=== PATIENT | male | born 1950 | race Caucasian/White ===

== ENCOUNTER 2016-06-29 11:31 | Inpatient (IN) | payer MEDICARE, MEDICAID ==
[~2016-06-29] VITALS: Ht 193 cm; Wt 120.5 kg
[~2016-06-29 11:31] MED LIST: CLIN-78 PO; FURO40TA4 PO; LISI-567 PO; OXYC-474 PO; OXYC30TA77 PO; POTA20TA16 PO; WARF10TA5 PO; WARF5TAB7 PO
[2016-06-29 11:34] VITALS: BP 157/91; PULSE 90; RESP 20; O2SAT 99
--- NOTE | 2016-06-29 12:00 | ED.REPORT ---
HPI-Extremity Problem Lower Date of Service Jun 29, 2016 ED Provider: Chino Rivas PA-C Kameron is a 65-year-old male with type II diabetes who was referred to the emergency department by Dr. Frances to address osteomyelitis in his right heel. Patient states that he was asked to present to our department yesterday but was unable to due to obligations at home. Further states that Dr. Frances wants to admit him for surgical debridement. Admits to severe right foot pain and 30 pounds weight gain over the last 3 weeks. Denies fever, chills, vomiting, diarrhea, abdominal pain. History of CHF, A. fib, anticoagulation with warfarin , DM 2. Nursing Notes Stated Complaint: POST SURGERY FOR R LEG Chief Complaint: Extremity Trauma Nursing Notes Reviewed: Yes Allergies: Coded Allergies: Sulfa (Sulfonamide Antibiotics) (Verified Allergy, Severe, yeast infection and near kidney failure, 05/06/16) hydrochlorothiazide (Verified Allergy, Severe, RASH, 05/06/16) carvedilol (Verified Adverse Reaction, Severe, DEPRESSION, 05/06/16) Scheduled Furosemide (Furosemide) 40 Mg Tablet 40 MG PO DAILY Lisinopril (Lisinopril) 20 Mg Tablet 20 MG PO DAILY Oxycodone ER (Oxycontin) 30 Mg Tab.er.12h 30 MG PO TID Potassium Chloride (Potassium Chloride) 20 Meq Tab.er.prt 20 MEQ PO DAILY TAKE WITH FOOD Warfarin Sodium (Jantoven) 10 Mg Tablet 10 MG PO Mo,,Th,Fr,Samano Scheduled PRN Oxycodone (Roxicodone) 5 Mg Tablet 10 MG PO Q2H PRN PRN For Pain General Time Seen by MD: 11:51 Chief Complaint Foot injury right Past Medical History Past Medical History Osteomyelitis, right calcaneus Diabetic ulcers Type 2 diabetes with peripheral neuropathy CHF Atrial fibrillation Past Surgical History Partial amputation status, both feet Pacemaker placement and removal Family History noncontributory Smoking History Current Every Day Smoker Social History Drug Use: Denies drug use Other Social History: Local resident Ambulatory Status Independent Review of Systems General: Denies fever, chills, malaise. HEENT: Denies congestion, headache, sore throat. Respiratory: Denies dyspnea, cough, shortness of breath, wheezing. Cardiovascular: Denies chest pain, palpitations. Gastrointestinal: Denies vomiting, diarrhea, abdominal pain. Genitourinary: Denies frequency, urgency, dysuria, hematuria. Otherwise as noted in HPI. Physical Exam General: Well developed, well nourished, no acute distress. Head: Atraumatic, normocephalic. Eyes: No scleral icterus or injection. No discharge. Vision grossly intact. ENT: Voice clear, hearing grossly intact. Respiratory: Regular rate and rhythm. Breath sounds present, clear to auscultation and equal bilaterally. Cardiovascular: Irregularly irregular rate and rhythm, heart sounds faint but no murmur, gallop or rub appreciated. No pedal edema. Gastrointestinal: Abdomen flat and non-tender without guarding or rebound. Bowel sounds normoactive. Skin: Several small partially or healed sores on both hands and left victor left leg. Left leg ruddiness and scale. Right foot 2 cm deep ulceration H of right heel surrounded by erythema with discharge. Nonpitting edema, redness and tenderness present up to mid tibia. Left foot: Toes amputated, significant callus at end of first metatarsal. Right foot: forefoot amputated. Neurological: Grossly nonfocal. Psychological: alert and oriented. Speech appropriate, linear and logical. Behavior appropriate. Initial Vital Signs Vital Signs (First) Date Time Temp Pulse Resp B/P Pulse Ox O2 Delivery O2 Flow Rate FiO2 06/29/16 11:34 36.8 90 20 157/91 99 Room Air Initial VS: Reviewed Interpretation & Diagnostics Lab Results Interpretation Result Diagram: 06/29/16 1222 06/29/16 1222 Test 06/29/16 12:22 06/29/16 14:05 06/29/16 14:49 White Blood Count 9.5th/mm3 (3.8-10.1) Red Blood Count 4.64mil/mm3 (4.40-5.80) Hemoglobin 12.0g/dL (13.8-17.2) Hematocrit 37.5% (41.0-50.0) Mean Corpuscular Volume 80.8fL (81-100) Mean Corpuscular Hemoglobin 25.9pg (27.0-35.0) Mean Corpuscular Hemoglobin Concent 32.0% (32.0-37.0) Red Cell Distribution Width 16.4% (12.3-15.4) Platelet Count 223bil/L (150-400) Neutrophils (%) (Auto) 73.2% (40-74) Lymphocytes (%) (Auto) 17.4% (14-46) Monocytes (%) (Auto) 7.6% (4-12) Eosinophils (%) (Auto) 1.3% (0-5) Basophils (%) (Auto) 0.3% (0-3) Erythrocyte Sedimentation Rate 92mm/hr (0-30) Sodium Level 136mEq/L (134-144) Potassium Level 4.2mEq/L (3.5-5.2) Chloride Level 98mEq/L (97-108) Carbon Dioxide Level 25mmol/L (18-29) Blood Urea Nitrogen 15mg/dL (8-27) Creatinine 0.67mg/dL (0.76-1.27) Estimat Glomerular Filtration Rate 127mL/min (>59) Glucose Level 117mg/dL (60-99) Lactic Acid Level 1.3mmol/L (0.4-2.0) Calcium Level 8.8mg/dL (8.5-10.1) Total Bilirubin 0.5mg/dL (0.0-1.2) Aspartate Amino Transf (AST/SGOT) 14U/L (0-50) Alanine Aminotransferase (ALT/SGPT) 8U/L (0-44) Alkaline Phosphatase 84U/L (25-160) C-Reactive Protein 9.3mg/dL (0.0-0.5) Total Protein 7.7g/dL (6.4-8.4) Albumin 3.2g/dL (3.4-5.0) Prothrombin Time 16.9sec (8.1-12.5) Prothromb Time International Ratio 1.57ratio Hold Urine Received (Received) X-Ray Interpretation Xray Interpretation: PROCEDURE: X-RAY RIGHT FOOT COMPLETE, MINIMUM THREE VIEWS ([id number]) INDICATIONS: 65-year-old male with nonhealing wound on the right heel. IMPRESSION: 1. Findings consistent with chronic posterior calcaneal osteomyelitis. 2. New soft tissue gas superior to the posterior calcaneal body would be worrisome for active soft tissue infection. Interpretation / Wet Read by: Interpret - Radiologist, Interp - P Re-Eval/Medical Decision Med Decision/Clinical Course Creatinine clearance estimated to be 136 mL/m based on Cockroft Gault equation and estimated lean body weight of 86 kg Consultation #1: Referral / Consult Name: Karey Frances DPM Consulted With: Orthopedic Call Returned at: 13:00 Note: Discussed the case with Dr. Frances. She asked me to start him on Zosyn based on his renal function and admit him to the hospitalist service. They are to contact her after admission. She said he does not need to be nothing by mouth and that she will come by this afternoon to debride the wound prior to surgery. Consultation #2: Referral / Consult Name: Pascual Zuleta MD Consulted With: Hospitalist Call Returned at: 15:05 [employer]: Accepts admit Discharge & Departure Impression: Primary Impression: Osteomyelitis of right foot Chronicity: chronic Qualified Code: M86.671 - Other chronic osteomyelitis, right ankle and foot Disposition: ADMITTED TO HOSPITAL Discharge Condition All VS Reviewed: Yes Condition: Stable Referrals: Eva Hope (PCP) EDSupervising Provider for APC: Dhaval Fried MD, Seth PA-C Jun 29, 2016 12:00
[2016-06-29] MEDS: HYDROmorphone 0.5 mg/0.5 mL iSecure Syringe IVPUSH PRN ×3 (12:23→17:07)
[2016-06-29 12:44] LABS: BASOPHILS % (AUTO) 0.3 % (0-3); EOSINOPHILS % (AUTO) 1.3 % (0-5); MONOCYTES % (AUTO) 7.6 % (4-12); Mean Corpuscular Hemoglobin 25.9 pg (27.0-35.0); Mean Corpuscular Volume 80.8 fL (81-100); NEUTROPHILS % (AUTO) 73.2 % (40-74); Platelet Count 223 bil/L (150-400)
--- NOTE | 2016-06-29 12:45 | DRSVH ---
PROCEDURE: X-RAY RIGHT FOOT COMPLETE, MINIMUM THREE VIEWS ([id number]) INDICATIONS: 65-year-old male with nonhealing wound on the right heel. TECHNIQUE: 3 views of the foot were acquired. COMPARISON: [facility], CR, XR FOOT 2VW RT, 03/08/2016, 13:12. [facility], C R, XR FOOT 3VW RT, 08/07/2015, 19:44. [facility], CR, XR FOOT 3VW RT, 08/05/2015, 12:09. [facility], CR, XR FOOT 3VW RT, 07/10/2015, 15:38. [facility], CR, XR FOOT 3V W RT, 07/04/2015, 9:31. [facility], CR, XR FOOT 3VW RT, 06/27/2015, 12:04. [facility], CR, XR FOOT 3VW RT, 03/07/2015, 15:27. [facility], CR, XR FOOT 3VW RT, 02/25/20 15, 13:19. FINDINGS: Bones: Patient is status post forefoot amputation as before. There is persistent irregular lucency wi thin the posterior calcaneal body, with overlying cortical destruction. No fractures. Soft tissues: There is new soft tissue gas superior to the posterior calcaneal body, in the expected position of the distal Achilles tendon. Soft tissue heterotopic ossification is again noted in the ex pected position of the plantar fascia. IMPRESSION: 1. Findings consistent with chronic posterior calcaneal osteomyelitis. 2. New soft tissue gas superior to the posterior calcaneal body would be worrisome for active soft ti ssue infection. Dictated by: Karlos Pastor M.D. on 06/29/2016 at 12:43 Approved by: Karlos Pastor M.D. on 06/29/2016 at 12:43
[2016-06-29] MEDS ORDERED: Piperacillin-Tazo 3.375 Gm Inj 3.375 GM in Dextrose 5% Minibag Plus 50 ML IV ONE (13:30)
[2016-06-29 14:12] LABS: INR 1.57 ratio
[2016-06-29 14:53] VITALS: BP 105/65; PULSE 60; O2SAT 95
[2016-06-29] MEDS ORDERED: Ondansetron 2 mg/mL 2 mL Inj IVPUSH PRN ×2 (15:10→16:15)
[2016-06-29] MEDS ORDERED: Alum-Mag Hydrox-Simeth 30 mL Suspension PO PRN ×2 (15:10→16:15)
[2016-06-29] MEDS ORDERED: HYDROcodone-APAP 5-325 mg Tablet PO PRN (16:15)
[2016-06-29] MEDS ORDERED: Polyethylene Glycol (PEG) 17 Gm Powder PO PRN (16:15)
[2016-06-29] MEDS ORDERED: WARFARIN SODIUM 10 MG PO SCH (16:15)
[2016-06-29] MEDS ORDERED: Piperacillin-Tazo 3.375 Gm Inj 3.375 GM in Dextrose 5% Minibag Plus 50 ML IV SCH (16:30)
[2016-06-29] MEDS: Sodium Chloride LOK Flush 10 mL Syringe IVFLUSH SCH ×2 (16:30→22:07)
[2016-06-29 17:07] VITALS: BP 104/68; PULSE 62; O2SAT 95
[2016-06-29 17:24] VITALS: BP 104/68; PULSE 62; RESP 20; O2SAT 95
[2016-06-29 18:04] VITALS: BP 121/79; PULSE 81; RESP 18; O2SAT 97
[2016-06-29] MEDS ORDERED: Furosemide 10 mg/mL 10 mL Inj IVPUSH ONE (18:20)
[2016-06-29] MEDS ORDERED: Albuterol-Ipratropium 120 Spray 4 Gm Inhaler INHALATION PRN (18:25)
--- NOTE | 2016-06-29 18:49 | PCM.HPMED ---
Subjective Date of Service Jun 29, 2016 Primary Provider: Admitting Physician: Pascual Zuleta MD Primary Care Physician: Eva Hope Attending Physician: Pascual Zuleta MD Admit Status: From the Emergency Department Chief Complaint: Weight gain 30 pounds, pain and drainage of right foot History of Present Illness: 65-year-old male who has had several years of issues with his food. He was last hospitalized in April for the same discharged on clindamycin. He has noticed his weight going up, he has probably not been terribly compliant with elevating his foot and it has become red and started to drain and become more painful. He was seen in the college sports assistant's office by Dr. Frances 06/28 foot did not look good and she was going to schedule his outpatient but patient had other commitments and has presented today after feeling worse having redness and fevers and chills today and is presenting for debridement and wound revision. Review of Systems: Gen.: No fevers chills weight loss +weight gainand possibly some fevers and Rigors but 30 pounds in the last few months patient feels like he has gains 2-3#s a day Eyes: no visual disturbances or blurring vision HEENT: No nose/throat drainage, no pain in ears or throat, no hearing loss Lymph: No lymph nodes noted Cardiac: No chest pain, orthopnea, PND, palpitations , pedal edema or dyspnea on exertion Pulmonary: no cough, wheezing or bringing up of sputum GI: No anorexia nausea vomiting blood or black in the stool : no dysuria hematuria urinary frequency or decrease in urine output Musculoskeletal: Joint swelling no joint pain no new muscle aches or back pain Neuro: No syncope, seizures no loss of consciousness no new focal weakness, numbness or tingling Psychiatric: New new anxiety insomnia or depression Endocrine: No new heat or cold intolerances polyuria or polydipsia Hematology: No lymphadenopathy or easy bleeding or bruising noted Erythema and edema of the right foot terrible, left stasis dermatitis Allergies Coded Allergies: Sulfa (Sulfonamide Antibiotics) (Verified Allergy, Severe, yeast infection and near kidney failure, 05/06/16) hydrochlorothiazide (Verified Allergy, Severe, RASH, 05/06/16) carvedilol (Verified Adverse Reaction, Severe, DEPRESSION, 05/06/16) Home Medications Warfarin 15 mg Friday and Friday, 10 mg every other day, lisinopril 20 minutes daily OxyContin 30milligrams 4 times a day Oxycodone5 to 10mg every 4 hours Furosemide 40 mg daily KCl 20 meq daily Clindamycin 450mg 4 times a day PMH Atrial fibrillation on warfarin CHF? Pedal edema Possible history of diabetes Peripheral vascular disease Tobacco abuse Surgical History Repeated surgeries on feet Family History No known history of early heart disease or cancer Social History Hx Alcohol Use: No (stopped 8 years ago.) Hx Substance Use: No Hx Tobacco Use: Yes Smoking Status: Current Every Day Smoker (1-2 packs a day) Exam Vital Signs Vital Sign - Last Date Time Temp Pulse Resp B/P Pulse Ox O2 Delivery O2 Flow Rate FiO2 06/29/16 18:04 37.0 81 18 121/79 97 Room Air Exam Gen.- A+ O 3 no apparent distress.heavyset male in [facility] Eyes- open conjunctiva clear, pupils equal nonicteric ENT- ears normal, nose normal Neck- supple/trach midline CVS- RRR no murmur or gallop Lungs CTA regular rate no evidence of accessory muscle usage GI- NABS/NT soft, generous pannus Musc- moving 4, right foot is extremely edematous there are no digits left is a large ulcerated lesion on the calcaneus and 1.5 x 3 cm draining purulent fluid Neuro- cranial nerves II through XII intact to gross examination, nonfocal Skin- warm and dry, other than stasis dermatitis and the foot with Psych- pleasant and appropriate, Lab and Diagnostics Result Diagram: 06/29/16 1222 06/29/16 1222 Assessment & Plan 65-year-old male being admitted with recurrent infection of the right foot and the wound recurrent infection has been on clindamycin and yet it is getting worse. Seen and sent in by his college sports assistant, Dr Frances.with the plan of wound revision. The patient's probably not been terribly compliant leg elevation and he is a smoker ongoing. 1-2 packs a day. recurrent wound/osteomyelitis of the calcaneus of the right foot- patient being started on clindamycin as he has had resistant staph aureus as well as multidrug resistant Morganella Morganii in the past Edema? CHF- check a BNP and an echocardiogram going to give him a dose of IV Lasix follow I's and O's and double up his daily by mouth Lasix dose. We will need to follow electrolytes. constipation- patient requesting bowel regimen Peripheral vascular disease-recommend smoking cessation history of diabetes- will start checking blood sugars and check HG A1c Tobacco abuse-recommend smoking cessation hypertension-continue home meds and monitor Chronic continuous opiate use/chronic pain-continue home regimen prophylaxis-DVT heparin and then Coumadin, SCDs are relatively contraindicated given this is dermatitis on the left and severe cellulitis/ deformity on the right, GI not indicated Disposition- patient is DO NOT RESUSCITATE from home Greater than 60 minutes spent admitting this patient, medically complex at high risk for complications Pascual Zuleta MD Jun 29, 2016 18:49
[2016-06-29] MEDS ORDERED: Magnesium Hydroxide 10 mL Oral Concentration PO PRN (18:50)
[2016-06-29] MEDS ORDERED: Albuterol-Ipratropium 3 mL Inhalation Solution NEB PRN (18:50)
[2016-06-29] MEDS ORDERED: Glucose 40% Oral Gel 15 Gm Tube PO PRN (19:25)
--- NOTE | 2016-06-29 20:10 | NUR ---
Arrival to Floor, Pain Patient arrived to floor from ED, ambulated into bed. Patient has patient IV, reports pain in foot, otherwise no complaint. Ordered pain medications administered, care is ongoing.
[2016-06-29] MEDS ORDERED: oxyCODONE ER 10 mg ER12 Tablet PO SCH (20:30)
[2016-06-29 20:50] VITALS: BP 108/59; PULSE 69; RESP 18; O2SAT 93
[2016-06-29] MEDS: oxyCODONE ER 10 mg ER12 Tablet PO SCH (21:21)
[2016-06-29] MEDS ORDERED: 0.9% Sodium Chloride 250 ML ONE (21:28)
[2016-06-29] MEDS: Insulin LISPRO 300 Unit/3 mL Inj SUBQ SCH (22:00)
[2016-06-29] MEDS: Piperacillin-Tazo 3.375 Gm Inj 3.375 GM in Dextrose 5% Minibag Plus 50 ML IV SCH (22:04)
--- NOTE | 2016-06-30 00:23 | CONS ---
[address] [address] CONSULTATION REPORT PATIENT: TRIPP ZHOU : 1950 MR#: [id number] ADMIT: 06/29/2016 JOB ID: [id number] DATE OF SERVICE: 06/29/2016 SUBJECTIVE: The patient is seen at bedside resting comfortably. He states that his pain is 7/10 in the right foot and ankle. States that this has become much worse over the last 48 hours. He has been busy and unavailable over the holidays and believes that this got out of hand in that time period. He recognizes the fact that his limb is at considerable risk for loss. He expresses a desire to do whatever is necessary to get this better. He states that he has had some febrile episodes in the last day or so, but he seems to be improved since beginning IV antibiotics in the emergency department today. He has had no nausea but diminished or absent appetite. He does state that he has gained 30 pounds of weight, and anticipates his fluid weight over the last month and a half. Three or four pounds of that has just been the last day or two, as he weighs with an accurate scale daily at home. OBJECTIVE: Vitals: BP is 121/79, pulse 81, respirations 18, temperature 37.0 p.o. Pulse oximetry shows 97% on room air. PERTINENT LABORATORY DATA: Includes white count of 9.5. The patient has an ESR of 92. CRP is 9.3. Albumin is 3.2. BUN and creatinine are 15 and 0.67, respectively. Dressings are heavily saturated with malodorous serous fluid at the right foot. Radiographs were reviewed prior to visit today showing gas in the tissue just proximal and lateral to the calcaneal wound site. There is grossly exposed bone within the wound site as well. During the course of exam and the bedside procedure, I was able to find a well-defined sinus tract connecting the plantar and lateral wound to the wound in the posterior triangle. Within that was necrotic and purulent tissue, and accumulation of gas which expressed freely with the incision. The area of the wound had underlying devitalized calcaneus fragmented and having some purulence in the superficial marrow space but, after debridement, this bled freely and was healthy in appearance. The patient does have +1 to +2 pitting edema of the left lower extremity, particularly focal to the area of concern. He has a history of transmetatarsal amputation and multiple infections due to a combination of the neuropathy and sometimes poor compliance with regard to protective shoe gear. ASSESSMENT: 1. Osteomyelitis of the right heel. 2. Infection, abscess, and cellulitis with gas on radiograph to the right foot and ankle. 3. Diabetes with neurologic manifestations. PLAN: After evaluating the patient at bedside and consenting him for a bedside incision and drainage, I performed a popliteal block with a combination of 2% lidocaine and 0.5% bupivacaine with epinephrine. After good anesthetic block was confirmed, I then introduced further lidocaine with epinephrine into the skin over the lateral heel. Incision was made approximately 3 cm in length. This was bluntly dissected down to gas-containing tissues which expressed freely. I then was able to identify a clear sinus tract on the lateral wall of the calcaneus coursing down to the plantar lateral wound. All tissue was excised including bone and fibrous tissue. I then irrigated with 1 L of a 50/50 normal saline and Betadine with peroxide. This was irrigated until it ran clear. I then introduced a 1/4-inch packing through the sinus tract and ligated it externally so as to easily remove and replace tomorrow. The packing was backed with normal saline moistened gauze, dry gauze, Kerlix, ABD, and a second layer of Kerlix wrap, followed by a nylon stocking. I anticipate this may strike through during the night but I encouraged the patient to keep the foot elevated and to rest throughout the night. States the relief in pain from the block should allow him to sleep, as he has not slept well in the last two or three days. I plan to visit him tomorrow, changing dressings and repacking the wound. I discussed with the patient both short-term and long-term goals. Short-term is to resolve the acute phase of the cellulitis and infection. Long care would be to revise the calcaneus, removing nonviable tissue and infected bone down to a healthy layer. This might require detachment and reattachment of the Achilles tendon. This could be done in conjunction with the rotational skin flap to close the fat pad deficit of the calcaneus given the clean surgical site. I anticipate, however, this would be best done after the patient has had some time on IV antibiotics so as not to form a iatrogenic abscess. The patient is informed of these details and states willingness to proceed. He also understands that he may be in a cast for as long as two months post revision of the calcaneus, allowing this to fully heal and provide a functional limb. As things progress, I think we should also look closely at the 5th metatarsal which shows some focal lytic changes. This may be disuse or stress reaction, but also could be a nidus of infection. A percutaneous bone biopsy would be appropriate once we have the acute issue under control. If there are any questions, please contact me on my cell phone, . I will plan to see the patient in the morning.
[2016-06-30 01:19] VITALS: BP 113/69; PULSE 85; RESP 19; O2SAT 95
--- NOTE | 2016-06-30 01:31 | NUR ---
I&D at bedside @ 1930 Dr Starkey instilled a medication block to patients Rt foot and then did an I&D at bedside. Patient tolerated well and pain reduced to 4 above his ankle. Addendum: 06/30/16 at 0136 by VIET GARCIA RN Wet to dry dressing applied by
[2016-06-30 03:40] LABS: BASOPHILS % (AUTO) 0.3 % (0-3); EOSINOPHILS % (AUTO) 4.6 % (0-5); Mean Corpuscular Hemoglobin 25.5 pg (27.0-35.0); Mean Corpuscular Volume 81.2 fL (81-100); NEUTROPHILS % (AUTO) 63.9 % (40-74); Platelet Count 207 bil/L (150-400)
[2016-06-30 04:09] LABS: TROPONIN T 0.01 ug/L (0.0-0.011)
[2016-06-30 05:38] VITALS: BP 126/74; PULSE 87; RESP 18; O2SAT 96
[2016-06-30] MEDS: Piperacillin-Tazo 3.375 Gm Inj 3.375 GM in Dextrose 5% Minibag Plus 50 ML IV SCH ×3 (06:39→20:59)
[2016-06-30] MEDS: Insulin LISPRO 300 Unit/3 mL Inj SUBQ SCH ×4 (08:00→20:32)
[2016-06-30] MEDS: Sodium Chloride LOK Flush 10 mL Syringe IVFLUSH SCH ×2 (08:30→16:30)
[2016-06-30] MEDS: Potassium Chloride 20 mEq SR Tablet PO SCH (10:16)
[2016-06-30] MEDS: Polyethylene Glycol (PEG) 17 Gm Powder PO SCH (10:17)
[2016-06-30] MEDS: oxyCODONE ER 10 mg ER12 Tablet PO SCH ×3 (10:18→20:56)
[2016-06-30 10:24] VITALS: BP 113/65; PULSE 97; RESP 18; O2SAT 97
[2016-06-30 11:15] LABS: INR 1.7 ratio
--- NOTE | 2016-06-30 11:50 | NUR ---
Inpatient status effective 06/30/16
--- NOTE | 2016-06-30 12:20 | PCM.PNMED ---
Subjective Date of Service Jun 30, 2016 Subjective - c/o Right foot pain. But also states that pain is significantly less than yesterday. Exam Vital Signs Vital Sign - Last Date Time Temp Pulse Resp B/P Pulse Ox O2 Delivery O2 Flow Rate FiO2 06/30/16 10:24 37.1 97 18 113/65 97 Room Air Intake and Output 06/29/16 06/29/16 06/30/16 Cumulative From/Thru 15:00 23:00 07:00 06/29/16 11:34 - 06/30/16 06:16 Intake Total 200 ml 800 ml 1000 ml Output Total 0 ml 4500 ml 4500 ml Balance 200 ml -3700 ml -3500 ml Intake Oral 200 ml 750 ml 950 ml IV Total 50 ml 50 ml Output Urine Total 0 ml 4500 ml 4500 ml Exam Gen.: No fevers chills weight loss Eyes: no visual disturbances or blurring vision HEENT: No nose/throat drainage, no pain in ears or throat, no hearing loss Lymph: No lymph nodes noted Cardiac: No chest pain, orthopnea, PND, palpitations , pedal edema or dyspnea on exertion Pulmonary: no cough, wheezing or bringing up of sputum GI: No anorexia nausea vomiting blood or black in the stool : no dysuria hematuria urinary frequency or decrease in urine output Musculoskeletal: Joint swelling no joint pain no new muscle aches or back pain Neuro: No syncope, seizures no loss of consciousness no new focal weakness, numbness or tingling Psychiatric: New new anxiety insomnia or depression Endocrine: No new heat or cold intolerances polyuria or polydipsia Hematology: No lymphadenopathy or easy bleeding or bruising noted Erythema and edema of the right foot terrible, left stasis dermatitis Lab and Diagnostics Result Diagram: 06/30/165 06/30/16324 Assessment & Plan 65-year-old male being admitted with recurrent infection of the right foot and the wound recurrent infection has been on clindamycin and yet it is getting worse. Seen and sent in by his buggy man, Dr Frances.with the plan of wound revision. The patient's probably not been terribly compliant leg elevation and he is a smoker ongoing. 1-2 packs a day. recurrent wound/osteomyelitis of the calcaneus of the right foot- patient being started on clindamycin as he has had resistant staph aureus as well as multidrug resistant Morganella Morganii in the past Osteomyelitis - on zosyn Edema? CHF- - BNP mildly elevated - IV Lasix - I and O's monitoring Peripheral vascular disease-recommend smoking cessation history of diabetes- - CBG monitoring - CBG well controlled - HbA1c: pending Tobacco abuse-recommend smoking cessation hypertension-continue home meds and monitor Chronic continuous opiate use/chronic pain-continue home regimen prophylaxis-DVT heparin and then Coumadin, SCDs are relatively contraindicated given this is dermatitis on the left and severe cellulitis/ deformity on the right, GI not indicated Disposition- patient is DO NOT RESUSCITATE from home Pain Evaluation: Adequate Pain Control Christopher Lozoya MD Jun 30, 2016 12:20
[2016-06-30] MEDS ORDERED: 0.9% Sodium Chloride 250 ML ONE (14:32)
[2016-06-30 15:48] VITALS: BP 126/77; PULSE 70; RESP 16; O2SAT 97
--- NOTE | 2016-06-30 16:50 | PROG NOTE ---
[address] [address] PROGRESS NOTE PATIENT: TRIPP ZHOU : 1950 MR#: [id number] ADMIT: 06/29/2016 JOB ID: [id number] DATE: 06/30/2016 SUBJECTIVE: The patient is seen at bedside resting comfortably. He describes some burning and tingling at the incision site but otherwise feels much better than yesterday. He denies any fevers, nausea, vomiting, or other constitutional signs of infection. He is becoming anxious about the course of therapy and what will come next. We discussed in detail yesterday but we went over it again today. Of greatest concern to him is outpatient antibiotics. He recently received a PICC line and antibiotics at [facility] and ran up a significant bill. He is worried about losing his home over that bill. He states that in the past he has had IV antibiotics at home with a prepared service. He is concerned he may not be eligible for this unless he is homebound. He states he would be willing to be homebound if that meant it would be covered as he is completely comfortable with self-administration under guidance of home nursing. The patient is otherwise feeling well and is encouraged with the significant improvement. States he has been getting up and going to the bathroom with the bedside urinal and has borne weight on the foot only once getting to the bathroom for a bowel movement. Otherwise, he is doing well. OBJECTIVE: Vitals: BP is 113/65, pulse 97, respirations 18, temperature 37.1 p.o. Pulse oximetry shows 97% on room air. PERTINENT LABORATORY DATA: Includes improvement of white count down to 6.7 from 9.5, H and H remain stable at 11.8 and 37.5. Chemistry is showing a BUN and creatinine at 13 and 0.69 respectively. BNP is 487.6. Dressings are clean, dry and intact to the right lower extremity. There is some moderate serous slight sanguineous drainage. Less than I had anticipated. The packing is intact. The wound site appears improved. Malodor is essentially resolved completely. The patient has considerable reduction in erythema and his edema is down by 20 or 30% already. The incision site is clean and healthy. Packing is intact and stable. This is changed during course of visit. He still has palpable bone in the plantar wound. This is to be resolved with definitive surgical intervention, hopefully in the next few days. ASSESSMENT: 1. Whiting grade 3 diabetic ulceration to the right heel. 2. Osteomyelitis. 3. Infection, abscess, and cellulitis to the right foot and ankle. 4. Diabetes with neurologic manifestations. PLAN: After evaluating the patient at bedside, I discussed with him again in detail the appropriate plan for salvage of this limb. This would, in fact, be continued daily dressing changes for the next couple of days while on IV antibiotics. I plan to order a PICC line probably tomorrow. By staggering some of these procedures, I think we will more likely be able to keep the patient satisfied with continued admission for observation. Unfortunately, in the past, he has been noncompliant with weightbearing and other issues while at home. Also, he is not smoking while in hospital which is of considerable benefit. If we can get the PICC line started tomorrow and look into home health options for IV antibiotics, I think that he could possibly discharge to home with plan to follow up for more definitive partial calcanectomy in the next few days. I would like to see the wound bed as clean as possible and better demarcation of the deep structures before doing so. His regular histotechnologist, Dr. Karey Frances, DPM, has an injury herself that prevents her from providing care for him at this time, but I am remaining in contact with her as we take care of this nice gentleman. I will follow with him tomorrow and continue work towards a definitive solution in the next couple of days.
--- NOTE | 2016-06-30 17:33 | NUR ---
Activity/Refusals Pt has not been OOB this shift. Complains of 5-7/10 pain level. Appears comfortable throughout shift, resting in bed or watching TV. No visible s/s of pain. Pt educated on importance of elevation R Leg. Pt verbalizes understanding. Tools provided for elevation. Continue to monitor. Pt refused gabapentin, did not want another medication added to what he is already taking.
[2016-06-30 19:57] VITALS: BP 117/72; PULSE 70; RESP 20; O2SAT 98
[2016-07-01] MEDS: Sodium Chloride LOK Flush 10 mL Syringe IVFLUSH SCH ×3 (00:21→16:30)
--- NOTE | 2016-07-01 02:55 | NUR ---
PAIN; requesting oxycodone q 3 1/2 to 4 hrs with effectiveness. Drsg right foot intact, up on pillows, blue pad.
[2016-07-01 04:18] VITALS: BP 113/72; PULSE 67; RESP 20; O2SAT 97
[2016-07-01] MEDS: Piperacillin-Tazo 3.375 Gm Inj 3.375 GM in Dextrose 5% Minibag Plus 50 ML IV SCH ×2 (04:26→13:53)
[2016-07-01 07:12] LABS: INR 1.43 ratio
[2016-07-01] MEDS: Polyethylene Glycol (PEG) 17 Gm Powder PO SCH ×2 (07:47→20:37)
[2016-07-01] MEDS: oxyCODONE ER 10 mg ER12 Tablet PO SCH ×3 (07:49→20:30)
[2016-07-01] MEDS: Potassium Chloride 20 mEq SR Tablet PO SCH (07:49)
[2016-07-01] MEDS: Insulin LISPRO 300 Unit/3 mL Inj SUBQ SCH ×4 (07:54→22:00)
--- NOTE | 2016-07-01 10:39 | PCM.PNMED ---
Subjective Date of Service Jul 01, 2016 Subjective - No acute events over night. - c/o right lower extremity pain, which is less than yesterday. Exam Vital Signs Vital Sign - Last Date Time Temp Pulse Resp B/P Pulse Ox O2 Delivery O2 Flow Rate FiO2 07/01/16 04:18 36.7 67 20 113/72 97 Room Air Intake and Output 06/30/16 06/30/16 07/01/16 Cumulative From/Thru 15:00 23:00 07:00 06/29/16 11:34 - 07/01/16 06:25 Intake Total 1265 ml 402 ml 2667 ml Output Total 1100 ml 600 ml 6200 ml Balance 165 ml -198 ml -3533 ml Intake Oral 1036 ml 200 ml 2186 ml IV Total 229 ml 202 ml 481 ml Output Urine Total 1100 ml 600 ml 6200 ml Exam Gen.: No fevers chills weight loss Eyes: no visual disturbances or blurring vision HEENT: No nose/throat drainage, no pain in ears or throat, no hearing loss Lymph: No lymph nodes noted Cardiac: No chest pain, orthopnea, PND, palpitations , pedal edema or dyspnea on exertion Pulmonary: no cough, wheezing or bringing up of sputum GI: No anorexia nausea vomiting blood or black in the stool : no dysuria hematuria urinary frequency or decrease in urine output Musculoskeletal: Joint swelling no joint pain no new muscle aches or back pain Neuro: No syncope, seizures no loss of consciousness no new focal weakness, numbness or tingling Psychiatric: New new anxiety insomnia or depression Endocrine: No new heat or cold intolerances polyuria or polydipsia Hematology: No lymphadenopathy or easy bleeding or bruising noted Erythema and edema of the right foot terrible, left stasis dermatitis IVs and Medications Medications Reviewed: Medications were reviewed in detail Lab and Diagnostics Result Diagram: 06/30/165 06/30/16 032 Assessment & Plan 65-year-old male being admitted with recurrent infection of the right foot and the wound recurrent infection has been on clindamycin and yet it is getting worse. Seen and sent in by his verify rep, Dr Frances.with the plan of wound revision. The patient's probably not been terribly compliant leg elevation and he is a smoker ongoing. 1-2 packs a day. recurrent wound/osteomyelitis of the calcaneus of the right foot- patient being started on clindamycin as he has had resistant staph aureus as well as multidrug resistant Morganella Morganii in the past Osteomyelitis - on zosyn 06/29 - - Rn Relief Charge is following the patient. Daily dressing change. - PICC line placement for IV antibiotics Edema ?CHF- - BNP mildly elevated - IV Lasix - I and O's monitoring Peripheral vascular disease -recommend smoking cessation history of diabetes- - CBG monitoring - CBG well controlled - HbA1c: pending Tobacco abuse-recommend smoking cessation hypertension-continue home meds and monitor Chronic continuous opiate use/chronic pain-continue home regimen prophylaxis-DVT heparin and then Coumadin, SCDs are relatively contraindicated given this is dermatitis on the left and severe cellulitis/ deformity on the right, GI not indicated Disposition- patient is DO NOT RESUSCITATE VTE Mechanical Devices: Intermittant Pneumatic CD Christopher Lozoya MD Jul 01, 2016 10:39
[2016-07-01 13:36] VITALS: BP 107/69; PULSE 80; RESP 20; O2SAT 95
[2016-07-01] MEDS ORDERED: 0.9% Sodium Chloride 250 ML ONE (13:51)
--- NOTE | 2016-07-01 15:20 | NUR ---
Pt Noncompliant Entered pt's room to administered medication, Pt OOB in BR and had not asked for assistance. using crutch w/ unsteady gait. nylon stocking on R foot placed by shirt bander and home sock on L foot. Assisted pt back to bed. Re-educated on the importance of non-weighbear status and why, yellow non skid sock placed on L foot. educated on falls risk. Requested pt use call light when he felt the need to get OOB. Pt verbalizes understanding. call light w/in reach.
--- NOTE | 2016-07-01 16:19 | NUR ---
Social Work: Initial Assessment: EMR Reviewed. See Initial Assessment. Patient is a 65 y/o male that admitted for right foot osteomyelitis. Patient is alert and oriented x3. Patient reports that he does not have a NOK or DPOA. Patient does not have VA benefits or LTC benefits. Patient lives in a single level home with one step to enter. Patient is independent with ADL's. Patient has a walker and crutches at home. Patient was previously on service with [facility] for wound care and plans to resume services when discharged. Patient will drive his self home in POV when discharged. SW will continue to follow. Plan:Patient was previously on service with [facility] for wound care and plans to resume services when discharged. Patient will drive his self home in POV when discharged. SW will continue to follow. China Underwood LMSW, DERICK Addendum: 07/01/16 at 1626 by CHINA DUNN Amended: Links added.
--- NOTE | 2016-07-01 16:30 | DRSVH ---
[facility] [address] [place] [address] Echocardiogram Report Name: TRIPP ZHOU ate: 07/01/2016 Height: 76 in Hospital Exam Location: [facility] Weight: 269 lb Gender: Male BSA: 2.5 m2 : 1950 Age: 65 yrs BP: 113/72 mmHg Reason For Study: CHF Ordering Physician: HOSPITALIST SVHPerformed By: Dimas Torrez Referring Physician: Ajit LEDESMA Interpretation Summary 1) Normal left ventricular thickness and size with moderately reduced systolic function (EF 30-35%). 2) Moderate global hypokinesis present. 3) Moderately dilated right ventricle with moderately reducded function. Pacemaker lead visualized in the right ventricle. 4) Moderate tricuspid regurgitation present. 5) Severe biatrial enlargement. 6) Atrial fibrillation with controlled ventricular rates present during the study. 7) No prior Echo available for comparison. Procedure: A two-dimensional transthoracic echocardiogram with color flow and Doppler was performed. The study quality was technically adequate. There is no prior echocardiogram noted for this patient. The patient was in atrial fibrillation with controlled ventricular rate during the exam. The patient had a heart rate of 63-88 beats per minute. Left Ventricle: The left ventricle is normal in size. There is normal left ventricular wall thickness. The ejection fraction is estimated to be 30-35%. Left ventricular systolic function is moderately reduced. There is moderate global hypokinesis of the left ventricle. Right Ventricle: The right ventricle is moderately dilated. There is a pacemaker lead in the right ventricle. Right ventricular systolic function is moderately reduced. Atria: There is severe biatrial enlargement. The interatrial septum is intact with no evidence for an atrial septal defect. Mitral Valve: The mitral valve is normal in structure and function. There is trace mitral regurgitation. Aortic Valve: The aortic valve is normal in structure and function. The aortic valve is trileaflet. The aortic valve opens well. There is no aortic valve stenosis. No aortic regurgitation is present. Tricuspid Valve: The tricuspid valve is normal in structure and function. There is moderate tricuspid regurgitation. The right ventricular systolic pressure is estimated at 31 mmHg assuming a right atrial pressure of 8 mm Hg. Pulmonic Valve: The pulmonic valve is not well visualized. Great Vessels: The aortic root is normal size. The ascending aorta is at the upper limits of normal in size. The pulmonary artery is normal size. The IVC is dilated (diameter is greater than 2.1 cm) yet it collapses greater than 50% with a sniff. This suggests a right atrial pressure of 8 mm Hg. Pericardium/ Pleura There is no pericardial effusion. There is no pleural effusion. MMode/2D Measurements & Calculations LVIDd: 5.3 cm LA dimension: 5.3 cm RA long axis: 6.8 cm Ao root diam LVIDs: 4.0 cm FS: 24.8 % LA A2 area: 40.2 cm RA area: 40.7 cm Aortic Jxn EPSS: 0.31 cm LA A4 area: 34.4 cm RA vol: 206.4 ml IVSd: 1.0 cm LA length (vol): 7.6 cm RA : 82.1 ml/m asc Aorta LVPWd: 1.1 cm LA vol: 154.6 ml RVDd major: 7.2 cm Diam: 3.8 cm RVDd minor: 5.3 cm LA vol index: 61.5 ml/m IVC diam: 2.3 cm EDV(MOD-sp2) LV mora. diameter/BSA LV sys. diameter/BSA : 161.3 ml (cm/m^2): 2.1 (cm/m^2): 1.6 Doppler Measurements & Calculations MV E max moisés MV E/A: 58.8 TR max moisés MV dec time : 57.1 cm/sec Med Peak E' Moisés : 238.7 cm/sec : 0.15 sec MV A max moisés TR max PG : 0.97 cm/sec E/E' med: 7.0 : 22.8 mmHg Lat Peak E' Moisés PA V2 max : 59.4 cm/sec E/E' lat: 4.5 PA mean PG : 0.89 mmHg PA Accel Time PA V2 mean : 45.5 cm/sec PA pr(Accel) : 36.6 mmHg Pediatric Measurements & Calculations TR mean P.9 mmHg TR mean moisés: 182.1 cm/sec TR VTI: 69.4 cm Reading Physician:04:29 PM
[2016-07-01 17:16] VITALS: BP 123/79; PULSE 85; RESP 20; O2SAT 97
[2016-07-01 20:26] VITALS: BP 117/88; PULSE 94; RESP 19; O2SAT 96
[2016-07-01] MEDS: Ertapenem Inj 1,000 MG in 0.9% Sodium Chloride 50 ML IV SCH (20:30)
--- NOTE | 2016-07-01 21:08 | PROG NOTE ---
[address] [address] PROGRESS NOTE PATIENT: TRIPP ZHOU : 1950 MR#: [id number] ADMIT: 06/29/2016 JOB ID: [id number] DATE: 07/01/2016 TIME: SUBJECTIVE: Patient is seen at bedside resting comfortably. States that the burning sensation he had experienced yesterday is resolved. Overall, he is feeling much better. He is becoming anxious to discharge to home when possible. He does state that he is currently qualified for home health and essentially is homebound with the exception of doctor's visits. He has used IV antibiotics through PICC line in the past and would be happy to do so again without having to receive this in a hospital facility. The patient denies any fevers, nausea, vomiting, or other constitutional signs of infection. States he is happy with the diet provided here and is having a normal appetite. OBJECTIVE: VITAL SIGNS: BP is 113/72, pulse 67, respirations 20, temperature 36.7 p.o. Pulse oximetry shows 97% on room air. There are no new labs this morning. Blood cultures remain negative. Dressings are CDI to the right lower extremity. Upon removal, there is moderate serosanguineous drainage immediately beside the wound site, but non extending. The erythema is now negligible. Edema continues to reduce. The area is also much less tender to palpation. Packing is intact and stable. The patient is now showing good granular fill to the plantar aspect of the foot. ASSESSMENT: 1. Whiting grade 3 diabetic ulceration to the right heel. 2. Osteomyelitis, right calcaneus. 3. Diabetes with neurologic and vascular manifestations. PLAN: After evaluating the patient today, I did irrigate the wound with 2% lidocaine with epinephrine prior to changing the packing. The patient tolerated that well. I changed the Iodoform packing, and then also assessed the deep calcaneal exposure finding an area of apparently necrotic and infected bone which I performed bone biopsy on. I removed a segment of approximately 5 mm cubic to send for culture and sensitivity aerobes and anaerobes. Given the nature of the bone, I do not feel like pathology evaluation is necessary, but certainly I would like some guidance with resolving the deeper portion of the infection. The rationale for waiting for culture was to reduce or eliminate false positives. The patient came in with a very infected and heavily colonized wound. It would have been difficult at that point to capture accurate representation of the bony part of the infection. I look forward to seeing results on this in the next day or two. I did order a PICC line. This can be placed non emergently as the patient is unlikely to go within the next day or two, but when schedule allows. I will be looking into surgical scheduling in the next day or two as well. This case would be early start on Friday, but that will remain to be seen for its availability. I will keep or Friday as options if no other option exists. What I would like to do is perform a partial calcanectomy and reattachment of the Achilles tendon with facilitation of passive drain proximally. This would allow for placement of the patient into a slightly plantar flexed load bearing fiberglass cast, distributing load to the tibia and to the forefoot, offloading the heel, so the patient may be minimally ambulatory as would be necessary at home. States in the past, he has had a long walk and difficult navigation to home, but at this point is able to park in his garage and within 10 or 15 steps get to a chair. In the past, he used a knee scooter and he would be willing to do so again. He does state, however, he also has crutches and a walker at his disposal. We are looking into any necessary DME equipment to facilitate staying off this for the next 4-6 weeks. The patient is given these details and proposed plan. He states that he has on board for whatever it takes to save his leg. I will be following him tomorrow morning hopefully with some answers on timing.
--- NOTE | 2016-07-01 22:21 | CONS ---
[address] [address] CONSULTATION REPORT PATIENT: TRIPP ZHOU : 1950 MR#: [id number] ADMIT: 06/29/2016 JOB ID: [id number] DATE OF SERVICE: 07/01/[address] Lozoya for this timely consult. REASON FOR CONSULTATION: Right diabetic foot osteomyelitis. HISTORY OF PRESENT ILLNESS: The patient is a 65-year-old gentleman who is well known to me from an admission back in July. The patient is a diabetic with basically insensate feet. He often walks on his feet and continues to smoke cigarettes and has had a really difficult time in the last year or two with respect to recurrent infections of the right foot. He has required a TMA on the right foot and also has had infection of the hindfoot requiring prolonged courses of antibiotics. Most recently, the patient tells us that about three weeks ago, he started to gain weight at an amazing rate and gained almost 30 pounds in three weeks. This produced massive swelling of his right greater than left lower extremity just within a couple of days of his admission, which occurred late on June 29. He notes that his right heel started to become somewhat painful and there was both drainage and a foul odor. He then sought evaluation by Dr. Frances, who recommended he come to the emergency room for admission. At the time of admission, the patient stated he had no fever or chills, just felt "lousy," and that he had the pain and swelling, drainage from his right hindfoot. It was noted by the admitting team that the patient had a well-defined sinus tract going into the right heel with malodorous drainage with gas. This essentially proved the diagnosis of osteomyelitis of the heel though a foot x-ray was also done which demonstrated chronic posterior calcaneal osteomyelitis with gas. Dr. Mora performed a debridement on the , yesterday, and another debridement is planned for later in the week. The patient today reports he is free of fevers, chills, or sweats. He has little in the way of pain in his right foot and is wondering about what sort of discharge planning would be appropriate. He notes that after a prolonged course of IV antibiotics would be general in their outpatient infusion center, there was a bill for greater than $150,000 dollars and the patient is, of course, concerned about whatever additional antibiotic plans we make and how this might impact him financially. PAST MEDICAL HISTORY: 1. Organic heart disease with atrial fibrillation. 2. Hypertension. 3. 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 4. Multiple infections of both feet resulting in bilateral TMA procedures as well as recurrent osteomyelitis of the right calcaneus. SOCIAL HISTORY: The patient lives by himself on [facility]. He just moved into a different home where he does not have to walk a long distance from his car and go up stairs, so he is feeling better about that. He lives there with his dog and pet fish. He reports that until last week, he was a cigarette smoker. It is interesting to note that he told me exactly the same thing during his July admission, but in fact continued to smoke cigarettes quite heavily up until a few days ago. He does not drink, having quit drinking about nine years ago by his report. FAMILY HISTORY: Negative for TB. REVIEW OF SYSTEMS: No significant headache. No visual change, sore throat, cough, or shortness of breath. No chest pain, nausea, vomiting, diarrhea, or dysuria. PHYSICAL EXAMINATION: GENERAL: Reveals an afebrile gentleman, looks older than 65. No acute distress. Awake and alert. He has a bit of a flat affect and may be a bit depressed though difficult to tell. VITAL SIGNS: Temperature 36.6. He has been afebrile since admission. Pulse 80, respiratory rate 20, blood pressure 107/69. He is saturating well on room air. HEAD: Without trauma. EYES: Without conjunctivitis. ORAL CAVITY: No thrush, pharyngitis. NECK: Without adenopathy. LUNGS: Clear. CARDIAC: Cardiac tones without significant murmur. ABDOMEN: Soft and nontender without ascites. : He does not have a Alvarado catheter. EXTREMITIES: His right lower extremity is considerably swollen as compared to the left and this swelling starts just above the knee and extends all the way down to and involving the foot. His foot is currently in a big postop dressing placed by Dr. Mora, which I did not remove. Patient has had bilateral TMAs. There is some apparent drainage from the right heel area, though as noted, I did not remove the bulky dressing that is currently present. His feet are insensate as before. LABORATORIES: Include a white count of 6700, normal diff. Sed rate 92. CRP is 9.3. Note that back in July, a sed rate was 29 when he also had osteo. A procalcitonin is 0, which is not surprising with osteomyelitis. Liver function tests normal. Urinalysis without white cells. The patient has recovered from hepatitis B as suggested by serologies obtained in April. At that time, his hepatitis B surface antibody and hepatitis B core were both positive. Labs include a variety of cultures going back to earlier this year. Back one year ago in May 2015, a foot infection culture grew Staph aureus and group G strep. In June, the patient again had a foot culture that grew Staph aureus and this was methicillin sensitive Staph. In December, the patient had a culture of his foot which grew a resistant Morganella. This organism was resistant to first generation cephalosporins and intermediate to second generation cephalosporins. It was resistant to quinolones, ampicillin/sulbactam, and trimethoprim sulfamethoxazole. It was quite sensitive to ertapenem. Most recently, the patient had a culture on June 28 when he was admitted, which again grew Morganella which had similar antibiotic resistance patterns. The quinolones are not reported and I attempted to call the micro lab to be sure it was not susceptible, but no one was there today. Blood cultures are negative and a repeat culture of the foot is pending. IMAGING: Includes the x-ray of the foot which showed osteo of the heel. IMPRESSION: This is an unfortunate 65-year-old diabetic gentleman who has had recurrent infections of both feet as a consequence of his diabetes. He continues to smoke cigarettes and often walks on his right foot when he shouldn't and fails to keep it elevated, all of which contribute to these recurrent infections. The patient has received prolonged courses of antibiotics earlier this year for osteomyelitis of the heel due to methicillin-sensitive Staphylococcus aureus and more recently has grown Morganella including on this admission. The optimal treatment for Morganella osteomyelitis is probably not well-defined given that it is fairly rare, but choices here would include ertapenem or meropenem from the carbapenem group or perhaps Zosyn. Cefepime might also be an option, but one could be concerned about development of resistance during therapy. Because the patient wishes to be discharged home and receive home IV antibiotics through a PICC line, I am inclined to favor ertapenem. The patient likely has some methicillin-sensitive Staphylococcus aureus and/or anaerobes or group B strep there as well as the Morganella and ertapenem would provide good coverage for all these. We have not isolated any Pseudomonas. Ertapenem has not been well studied in osteomyelitis, but there is at least anecdotal reports of success and I think it makes sense from a microbiologic point of view here. Because the patient's weight is over 110 kg, we plan to give the ertapenem on a q.12 hour basis rather than q.24 which will complicate things a bit, but the patient says he can tolerate it. RECOMMENDATIONS: 1. We can discontinue the Zosyn he is currently receiving. 2. Will start the patient on ertapenem 1 g q.12 h. 3. I would hold off on placing a PICC line at least until tomorrow morning until we can make sure that the Morganella is not susceptible to quinolones. If it did veneer jointer returner to be susceptible, we might try and treat the patient with oral quinolone agents. If not, we will have no choice but to use parenteral therapy. Thank you very much for this consult.
[2016-07-02] MEDS: Sodium Chloride LOK Flush 10 mL Syringe IVFLUSH SCH ×3 (00:42→16:05)
[2016-07-02 04:35] VITALS: BP 128/80; PULSE 56; RESP 16; O2SAT 97
--- NOTE | 2016-07-02 05:24 | NUR ---
Pain Pain adequately controlled with prn oxycodone in addition to scheduled oxycontin. Hourly rounding ongoing.
[2016-07-02 06:38] LABS: BASOPHILS % (AUTO) 0.3 % (0-3); EOSINOPHILS % (AUTO) 7.1 % (0-5); MONOCYTES % (AUTO) 7.3 % (4-12); Mean Corpuscular Hemoglobin 25.7 pg (27.0-35.0); Mean Corpuscular Volume 81.3 fL (81-100); Platelet Count 219 bil/L (150-400)
[2016-07-02 06:42] LABS: INR 1.19 ratio
[2016-07-02] MEDS: Insulin LISPRO 300 Unit/3 mL Inj SUBQ SCH ×4 (07:32→22:00)
[2016-07-02] MEDS: Ertapenem Inj 1,000 MG in 0.9% Sodium Chloride 50 ML IV SCH ×2 (09:28→20:32)
[2016-07-02] MEDS: Polyethylene Glycol (PEG) 17 Gm Powder PO SCH (09:28)
[2016-07-02] MEDS: Potassium Chloride 20 mEq SR Tablet PO SCH (09:29)
[2016-07-02] MEDS: oxyCODONE ER 10 mg ER12 Tablet PO SCH ×3 (09:30→20:32)
[2016-07-02 10:15] VITALS: BP 145/71; PULSE 76; RESP 18; O2SAT 97
--- NOTE | 2016-07-02 13:21 | PROG NOTE ---
[address] [address] PROGRESS NOTE PATIENT: TRIPP ZHOU : 1950 MR#: [id number] ADMIT: 06/29/2016 JOB ID: [id number] DATE: 07/02/2016 INFECTIOUS DISEASE FOLLOW UP NOTE: REASON FOR FOLLOWUP: Right diabetic foot infection with osteomyelitis of the calcaneus. INTERVAL HISTORY: The patient reports today he is feeling improved. No fevers, chills or sweats. No pulmonary or GI symptoms. He notes that the swelling around his right leg is much improved. Vital signs include temperature 36.7, and the patient has been consistently afebrile. Pulse 76, respiratory rate 18, blood pressure 145/71. He is saturating well on room air and in no acute distress. Oral cavity negative. Lungs clear. Abdomen benign. Right lower extremity swelling is much decreased. There is no erythema above the level of the ankle. The area below the ankle on the right is wrapped in a complex dressing which was applied by the catalyst concentration operator so I did not remove it. LABORATORIES: Include white count 6200, 7% eosinophils, sed rate 92. Creatinine 0.71. Procalcitonin 0. CRP was 9.3. Micro studies from this admission are negative but a culture done just prior to admission yielded a Morganella morganii and this was the same bug he had had in his foot back in December. The Morganella turns out to be completely resistant to quinolones which gives us no oral option as it is also resistant to Bactrim. Out of the IV choices, I think the optimal choice here, given that he has also cultured group B strep and anaerobes in the past would be ertapenem as it should provide good coverage for all these organisms. IMPRESSION: This is an unfortunate gentleman with recurrent severe infections of his right foot. At this time he has calcaneal osteo and Dr. Starkey plans additional debridement today or tomorrow prior to discharge. The patient has Morganella from her recent culture as well as a culture in December and previously has grown Staph group B strep and some anaerobes. Ertapenem would seem to be the parsimonious choice to cover all these antibiotics but will need to be q.12 because of his size. RECOMMENDATIONS: 1. We continue with ertapenem 1 g q.12. 2. I would anticipate a six week course of therapy which will take us all the way through mid July. 3. I have written home IV infusion orders. 4. The patient will need a PICC line. 5. I will continue to follow this patient with you.
--- NOTE | 2016-07-02 17:06 | PROG NOTE ---
[address] [address] PROGRESS NOTE PATIENT: TRIPP ZHOU : 1950 MR#: [id number] ADMIT: 06/29/2016 JOB ID: [id number] DATE: 07/02/2016 SUBJECTIVE: The patient presents at bedside, resting comfortably. I was fortunate enough to be able synchronize the visit with Dr. Moulton, Dr. Frances and Dr. Mccoy. The patient has some questions about discharge. He expresses an anxiousness to discharge but understanding that it would be best to address this problem head on definitively rather than to allow it to continue. He denies any fevers, nausea, vomiting, or other constitutional signs of infection. States he feels well but is anxious to get on with the next stage of his treatment. OBJECTIVE: Vitals: BP is 145/71, pulse 76, respirations 18, temperature 36.7 p.o. Pulse oximetry shows 97% on room air. PERTINENT LABORATORY DATA: Includes stable white count 6.2, H and H also stable at 12.4 and 39.2, differential still showing elevation of the eosinophils at 7.1. Otherwise, lymphocytes are normal at 31. Chemistry shows stable creatinine at 0.71. Yesterday's bone culture is showing a few polys, no visualized organisms but scant normal srinivasan is already growing. This is held for incubation. Dressings to the right lower extremity have only moderate serous and sanguineous drainage which is nonmalodorous. Erythema around the incision site and the plantar wound both appear improved. The plantar wound is showing some granular fill, but there is still palpable bone centrally. The patient's edema also appears to improve. Periarticular nodes negative at the ankle and perigenicular. ASSESSMENT: 1. Whiting grade 3 diabetic ulceration, right heel. 2. Osteomyelitis, right calcaneus. 3. Diabetes with neurologic manifestations and chronic foot wounds. PLAN: After evaluating the patient at bedside today, I did change the dressings, replacing the Iodoform packing, and normal saline and Betadine-moistened gauze, dry gauze, Kerlix and nylon stocking. I will continue daily dressing changes until the planned surgery. Discussed with the patient the timing of such procedure. I anticipate a need for fairly definitive excision of bone including part of the calcaneus which may require reattachment of the Achilles tendon. Ideally, this should be done once the wound has reached a steady, static, healthy state. The patient has been on antibiotics since last Friday. If he is medically stable for discharge and ready to receive outpatient IV antibiotics, he could discharge to home and follow with outpatient surgical excision of the calcaneus within the next week. I will be looking into options and discussing this with him tomorrow morning. Ideally, another day or two of IV antibiotics prior to the procedure would be preferred as it would allow for more complete partial primary closure. Certainly, extended packing and allowance for drainage would be necessary for a couple of weeks. The patient's questions are answered. I will follow him tomorrow morning. My thanks to the comprehensive team and their interaction with this nice gentleman.
[2016-07-02 18:15] VITALS: BP 136/73; PULSE 103; RESP 19; O2SAT 97
--- NOTE | 2016-07-02 18:16 | NUR ---
Pain Management Patient reported 7-8/10 foot pain this shift. 20 mg of oxycodone given every two hours along with scheduled OxyContin 15 mg. Patient denies nausea at this time. Patient repositions self and elevates foot. Call light and tray table within reach. Will continue to monitor patient hourly.
--- NOTE | 2016-07-02 18:52 | PCM.PNMED ---
Subjective Date of Service Jul 02, 2016 Subjective Feels well, pain is controlled. No chest pain, nausea vomiting, diarrhea or constipation. Exam Vital Signs Vital Sign - Last Date Time Temp Pulse Resp B/P Pulse Ox O2 Delivery O2 Flow Rate FiO2 07/02/16 18:15 36.6 103 19 136/73 97 Room Air Intake and Output 07/01/16 07/01/16 07/02/16 Cumulative From/Thru 15:00 23:00 07:00 06/29/16 11:34 - 07/02/16 06:40 Intake Total 1183 ml 150 ml 4000 ml Output Total 1000 ml 450 ml 7650 ml Balance 183 ml -300 ml -3650 ml Intake Oral 1036 ml 150 ml 3372 ml IV Total 147 ml 628 ml Output Urine Total 1000 ml 450 ml 7650 ml Exam General: Alert, Oriented X3, NAD Head: Normocephalic, atraumatic Eyes: ZINA, EOMI, no scleral Icterus Chest: clear to auscultation B/L, no wheezing rales or rhonchi Heart: Regular rate and rhythm. Normal S1, S2, no murmurs noted Abdomen: soft, non-tender. Bowel sounds are normoactive. No guarding or rebound. Extremities: no cyanosis, right foot with partial amputation. Heal wound with non-odorous drainage, fistulization proximally IVs and Medications Medications Reviewed: Medications were reviewed in detail Lab and Diagnostics Result Diagram: 07/02/1661407/02/16614 Assessment & Plan 65-year-old male being admitted with recurrent infection of the right foot and the wound recurrent infection has been on clindamycin and yet it is getting worse. Seen and sent in by his assembler steam and gas turbine, Dr Frances.with the plan of wound revision. The patient's probably not been terribly compliant leg elevation and he is a smoker ongoing. 1-2 packs a day. recurrent wound/osteomyelitis of the calcaneus of the right foot- patient being started on clindamycin as he has had resistant staph aureus as well as multidrug resistant Morganella Morganii in the past Osteomyelitis -Patient was on zosyn 06/29, changed to ertapenem - Legal File Clerk is following the patient. Daily dressing change. - PICC line placement for IV antibiotics -Infectious disease consultation Edema ?CHF- - BNP mildly elevated - IV Lasix - I and O's monitoring Peripheral vascular disease -recommend smoking cessation history of diabetes- - CBG monitoring - well controlled - HbA1c: 6.2 A. fib: -Stable, normally takes Coumadin which is being held currently. Tobacco abuse-recommend smoking cessation hypertension-continue home meds and monitor Chronic continuous opiate use/chronic pain-continue home regimen prophylaxis-DVT heparin and then Coumadin, SCDs are relatively contraindicated given this is dermatitis on the left and severe cellulitis/ deformity on the right, GI not indicated CODE STATUS- patient is DO NOT RESUSCITATE Disposition: Pending hospital course, likely discharge 1-2 days VTE Mechanical Devices: Intermittant Pneumatic CD Rio Moulton DO Jul 02, 2016 18:52
[2016-07-02 20:28] VITALS: BP 116/68; PULSE 78; RESP 20; O2SAT 95
[2016-07-03] MEDS: Sodium Chloride LOK Flush 10 mL Syringe IVFLUSH SCH ×2 (01:20→08:12)
--- NOTE | 2016-07-03 02:43 | NUR ---
Pain Pain level 4-5 with 20mg oxycodone every 2hrs.States this is tolerable and in no apparent distress.VSS.Right foot elevated and dressing CDI.I&O qs.Sleeping intermittently and resting comfortably at this time Will cont. to monitor.
[2016-07-03 06:25] VITALS: BP 100/65; PULSE 65; RESP 18; O2SAT 95
[2016-07-03 06:44] LABS: Mean Corpuscular Hemoglobin 25.9 pg (27.0-35.0); Mean Corpuscular Volume 81.4 fL (81-100)
[2016-07-03] MEDS: Insulin LISPRO 300 Unit/3 mL Inj SUBQ SCH (07:51)
[2016-07-03 07:56] LABS: INR 1.11 ratio
[2016-07-03] MEDS: Ertapenem Inj 1,000 MG in 0.9% Sodium Chloride 50 ML IV SCH (08:12)
[2016-07-03] MEDS: Potassium Chloride 20 mEq SR Tablet PO SCH (08:12)
[2016-07-03] MEDS: Polyethylene Glycol (PEG) 17 Gm Powder PO SCH (08:13)
[2016-07-03] MEDS: oxyCODONE ER 10 mg ER12 Tablet PO SCH (08:16)
--- NOTE | 2016-07-03 11:01 | NUR ---
AMA SUELLEN informed Pt left AMA reporting he could no longer afford the hospital stay required. SUELLEN made referral for Home Infusion with [facility] as Pt has no preference. SUELLEN called back and updated Malcolm Godwin with VM that Pt left AMA. STACEY Yates
--- NOTE | 2016-07-03 11:01 | NUR ---
ELIAN GALINDO came out of pt's room and advised this RN that pt was dressed and ready to go. Entered pt's room, he was in fact completely dressed and said he was getting out of here. Advised pt of the importance of staying for PICC line placement and getting set up at home w/ IV abx. Pt states "I don't care anymore, I was told 3 days and now it is day 5, PICC was supposed to go in yesterday and now it might not be until late today, I just want out of here, I am leaving." ID Doctor and Wound care nurse in [facility], approached patient to try and encourage him to stay, pt signed AMA for and left w/ all belongings. Addendum: 07/03/16 at 1142 by NONI MEDINA RN When I asked the PT about his IV, he said he took it out. I felt his arm and did not feel any IV presence.
--- NOTE | 2016-07-03 11:46 | PROG NOTE ---
[address] [address] PROGRESS NOTE PATIENT: TRIPP ZHOU : 1950 MR#: [id number] ADMIT: 06/29/2016 JOB ID: [id number] DATE: 07/03/2016 This is not going to be billable but I did want to reflect in the record that the patient has left AMA this morning. Recall that yesterday we were attempting to set up home IV infusion therapy with ertapenem for six weeks through August 13 as optimal therapy for polymicrobial osteomyelitis including Morganella. I discussed his case with the field hand at the bedside last night and we had formulated a clear plan. This morning the patient has decided to leave AMA. There have been complications in arranging for the home infusion therapy because of some insurance issues and it had been requested the patient stay a bit longer until these things could be hammered out. This morning he simply says he has had enough and is leaving the hospital. The nurse, the wound workforce management manager and I have all told the patient this could result in dire consequences such as loss of his foot and/or even but the patient say he is simply fed up and though he understands the consequences of leaving. RICK
--- NOTE | 2016-07-03 19:45 | PCM.DC.MED ---
Discharge Summary Date of Service Jul 03, 2016 Dates of Hospitalization Date of Hospital Admission Jun 29, 2016 at 14:56 Date of Discharge: Jul 03, 2016 Providers: Admitting Physician: Pascual Zuleta MD Primary Care Physician: Eva Hope Attending Physician: Pascual Zuleta MD Brief History 65-year-old male who has had several years of issues with his food. He was last hospitalized in April for the same discharged on clindamycin. He has noticed his weight going up, he has probably not been terribly compliant with elevating his foot and it has become red and started to drain and become more painful. He was seen in the template maker's office by Dr. Frances 06/28 foot did not look good and she was going to schedule his outpatient but patient had other commitments and has presented today after feeling worse having redness and fevers and chills today and is presenting for debridement and wound revision. Hospital Course 65-year-old male being admitted with recurrent infection of the right foot and the wound recurrent infection has been on clindamycin and yet it is getting worse. Seen and sent in by his template maker, Dr Frances.with the plan of wound revision. The patient's probably not been terribly compliant leg elevation and he is a smoker ongoing. 1-2 packs a day. recurrent wound/osteomyelitis of the calcaneus of the right foot- patient being started on clindamycin as he has had resistant staph aureus as well as multidrug resistant Morganella Morganii in the past Osteomyelitis -Patient was on zosyn 06/29, changed to ertapenem - Trade Mark Examiner is following the patient. Daily dressing change. - PICC line placement for IV antibiotics -Infectious disease consultation Edema ?CHF- - BNP mildly elevated - IV Lasix - I and O's monitoring Peripheral vascular disease -recommend smoking cessation history of diabetes- - CBG monitoring - well controlled - HbA1c: 6.2 A. fib: -Stable, normally takes Coumadin which is being held currently. Tobacco abuse-recommend smoking cessation hypertension-continue home meds and monitor Chronic continuous opiate use/chronic pain-continue home regimen Despite strong recommendations to the contrary, the patient decided to leave AMA. Exam Vital Signs (Last) Date Time Temp Pulse Resp B/P Pulse Ox O2 Delivery O2 Flow Rate FiO2 07/03/16 06:25 36.6 65 18 100/65 95 Room Air Test 12/31/16 12:22 06/29/16 14:49 06/30/16 03:25 07/02/16 06:15 Erythrocyte Sedimentation Rate 92mm/hr (0-30) Lactic Acid Level 1.3mmol/L (0.4-2.0) Total Bilirubin 0.5mg/dL (0.0-1.2) Aspartate Amino Transf (AST/SGOT) 14U/L (0-50) Alanine Aminotransferase (ALT/SGPT) 8U/L (0-44) Alkaline Phosphatase 84U/L (25-160) C-Reactive Protein 9.3mg/dL (0.0-0.5) Total Protein 7.7g/dL (6.4-8.4) Albumin 3.2g/dL (3.4-5.0) Procalcitonin < 0.05ng/mL (See Comment) Hold Urine Received (Received) Hemoglobin A1c 6.2% (4.8-5.6) Troponin T 0.010ug/L (0.0-0.011) Pro-B-Type Natriuretic Peptide 487.6pg/mL (0-210) Neutrophils (%) (Auto) 54.0% (40-74) Lymphocytes (%) (Auto) 31.0% (14-46) Monocytes (%) (Auto) 7.3% (4-12) Eosinophils (%) (Auto) 7.1% (0-5) Basophils (%) (Auto) 0.3% (0-3) Test 07/03/16 06:00 07/03/16 07:20 White Blood Count 6.7th/mm3 (3.8-10.1) Red Blood Count 4.79mil/mm3 (4.40-5.80) Hemoglobin 12.4g/dL (13.8-17.2) Hematocrit 39.0% (41.0-50.0) Mean Corpuscular Volume 81.4fL (81-100) Mean Corpuscular Hemoglobin 25.9pg (27.0-35.0) Mean Corpuscular Hemoglobin Concent 31.8% (32.0-37.0) Red Cell Distribution Width 15.8% (12.3-15.4) Platelet Count 226bil/L (150-400) Sodium Level 141mEq/L (134-144) Potassium Level 4.3mEq/L (3.5-5.2) Chloride Level 103mEq/L (97-108) Carbon Dioxide Level 28mmol/L (18-29) Blood Urea Nitrogen 21mg/dL (8-27) Creatinine 0.75mg/dL (0.76-1.27) Estimat Glomerular Filtration Rate 111mL/min (>59) Glucose Level 94mg/dL (60-99) Calcium Level 8.7mg/dL (8.5-10.1) Prothrombin Time 11.9sec (8.1-12.5) Prothromb Time International Ratio 1.11ratio Discharge Medications Discharge Medications Furosemide (Furosemide) 40 Mg Tablet 40 MG PO DAILY (Reported) Lisinopril (Lisinopril) 20 Mg Tablet 20 MG PO DAILY (Reported) Oxycodone ER (Oxycontin) 30 Mg Tab.er.12h 30 MG PO TID Prescribed by: LEONA MADRIGAL DO Potassium Chloride (Potassium Chloride) 20 Meq Tab.er.prt 20 MEQ PO DAILY ( Reported) TAKE WITH FOOD Warfarin Sodium (Jantoven) 10 Mg Tablet 10 MG PO Mo,,Th,Fr,Samano (Reported) As needed Oxycodone (Roxicodone) 5 Mg Tablet 10 MG PO Q2H PRN PRN For Pain Prescribed by: DO Kenney BHAKTA Brian F DO Jul 03, 2016 19:44
== END 2016-07-03 11:00 | disposition left against medical advice (07) | DRG 629 ==
LOC: SED 11:31 → MOC 14:56 → OSC 17:19
PROVIDERS: ADMIT Hospitalist; ATTEND Hospitalist
PROC: 0QBL0ZZ Excision of Right Tarsal, Open Approach (ICD-10-PCS; principal; 2016-06-29)
DX: E11.69 Type 2 diabetes mellitus with other specified complication (principal); M86.171 Other acute osteomyelitis, right ankle and foot; E11.52 Type 2 diabetes mellitus with diabetic peripheral angiopathy with gangrene; F17.200 Nicotine dependence, unspecified, uncomplicated; I48.91 Unspecified atrial fibrillation; G89.29 Other chronic pain; B95.62 Methicillin resistant Staphylococcus aureus infection as the cause of diseases classified elsewhere; I10 Essential (primary) hypertension; Z66 Do not resuscitate

== ENCOUNTER 2016-07-05 12:03 | Inpatient (IN) | payer MEDICARE, MEDICAID ==
[~2016-07-05] VITALS: Ht 190.5 cm; Wt 122.4 kg
[~2016-07-05 12:03] MED LIST changes: -CLIN-78 PO; -WARF5TAB7 PO
[2016-07-05 12:05] VITALS: BP 146/79; PULSE 88; RESP 16; O2SAT 100
--- NOTE | 2016-07-05 12:37 | ED.REPORT ---
HPI-General Illness Date of Service Jul 05, 2016 ED Provider: Dr. Trevino 65 year old male with a history of diabetes, chronic osteomyelitis of R calcaneus and Afib presents to the ED referred from the doubler operator, Dr. Starkey for a PIC line and antibiotics. Pt has had a chronic R foot infection for years , which worsened in the last week. Pt was hospitalized last week for recurrent wound/osteomyelitis of the calcaneus of the right foot. Patient was being started on clindamycin as he has had resistant staph aureus as well as multidrug resistant Morganella Morganii in the past. Left AMA on while working on home infusion therapy of ertapenem which was supposed to continue through Aug 13. He states he left AMA because he was depressed. Pt has not been taking antibiotics since he left. Pt reports subjective fever. Denies chills, CP and SOB. Nursing Notes Stated Complaint: INFECTION IN R FOOT Chief Complaint: Extremity Trauma Nursing Notes Reviewed: Yes Allergies: Coded Allergies: Sulfa (Sulfonamide Antibiotics) (Verified Allergy, Severe, yeast infection and near kidney failure, 07/05/16) hydrochlorothiazide (Verified Allergy, Severe, RASH, 07/05/16) carvedilol (Verified Adverse Reaction, Severe, DEPRESSION, 07/05/16) Scheduled Furosemide (Furosemide) 40 Mg Tablet 40 MG PO DAILY Lisinopril (Lisinopril) 10 Mg Tablet 10 MG PO DAILY Oxycodone ER (Oxycontin) 15 Mg Tab.er.12h 15 MG PO TID Potassium Chloride ER (Potassium Chloride ER) 10 Meq Tablet 10 MEQ PO DAILY Warfarin Sodium (Jantoven) 10 Mg Tablet 10 MG PO ,,,,Samano Warfarin Sodium (Warfarin Sodium) 10 Mg Tablet 15 MG PO Fri,Fri Scheduled PRN oxyCODONE (oxyCODONE) 20 Mg Tablet 20 MG PO Q4H PRN PRN For Pain General Time Seen by MD: 12:36 Chief Complaint Other (Foot wound) Hx Obtained From: Patient Arrived By: Walk-in Sudden in Onset?: No Onset Occurred: More than a week ago... Symptom Duration: More than a week... Location: : Foot right Quality: Painful Severity: Current: Mild Recent Healthcare: Recent doctor visit, Recent hospitalization Similar Sx Previous: Yes Past Medical History Past Medical History Osteomyelitis, right calcaneus Diabetic ulcers Type 2 diabetes with peripheral neuropathy CHF Atrial fibrillation Past Surgical History Partial amputation status, both feet Pacemaker/ AICD placement and removal Family History noncontributory Smoking History Current Every Day Smoker Social History Drug Use: Denies drug use Other Social History: Local resident Ambulatory Status Independent Review of Systems Full Review of Systems Constitutional: Reports: Fever, Denies: Chills Respiratory: Denies: Shortness of breath Cardiovascular: Denies: Chest pain GI: Denies: Abdominal pain, Vomiting Musculoskeletal: Reports: Extremity pain Skin: Reports Rash Complete sys rev & neg: except as marked. Physical Exam Vital Signs Vital Signs Date Time Temp Pulse Resp B/P Pulse Ox O2 Delivery O2 Flow Rate FiO2 07/05/16 12:05 36.7 88 16 146/79 100 Room Air Initial VS: Reviewed ENT: Conjunctiva normal, No scleral icterus Neck: Full range of motion Skin: Warm, Dry (See foot exam) Neurologic: Alert, Oriented General/Constitutional: Awake, Alert Head / Eyes: Atraumatic, Normocephalic, PERRL Respiratory / Chest: Breath sounds NL, Breath sounds = bilat, No respiratory distress, No rales, No rhonchi, No wheezing Cardiovascular: Heart rate NL, Regular rhythm, Heart sounds NL, Cap refill not delayed, Peripheral circulation NL Abdomen: Soft, Non-tender R leg: Mid foot amputation with dressings on foot 2 days old. Multiple ulcers with packing and significant drainage. There is no significant erythema or cellulitis. Abnormal Mood/Affect: Positive: Flat affect Poor eye contact Interpretation & Diagnostics Lab Results Interpretation Result Diagram: 07/05/16 1315 07/05/16 1315 Test 07/05/16 13:15 White Blood Count 8.1th/mm3 (3.8-10.1) Red Blood Count 5.07mil/mm3 (4.40-5.80) Hemoglobin 13.1g/dL (13.8-17.2) Hematocrit 40.8% (41.0-50.0) Mean Corpuscular Volume 81fL (81-100) Mean Corpuscular Hemoglobin 25.8pg (27.0-35.0) Mean Corpuscular Hemoglobin Concent 32.1% (32.0-37.0) Red Cell Distribution Width 16.3% (12.3-15.4) Platelet Count 240bil/L (150-400) Neutrophils (%) (Auto) 67% (40-74) Lymphocytes (%) (Auto) 24% (14-46) Monocytes (%) (Auto) 5% (4-12) Eosinophils (%) (Auto) 4% (0-5) Basophils (%) (Auto) 0% (0-3) Sodium Level 141mEq/L (134-144) Potassium Level 4.2mEq/L (3.5-5.2) Chloride Level 103mEq/L (97-108) Carbon Dioxide Level 25mmol/L (18-29) Blood Urea Nitrogen 23mg/dL (8-27) Creatinine 0.70mg/dL (0.76-1.27) Estimat Glomerular Filtration Rate 121mL/min (>59) Glucose Level 145mg/dL (60-99) Calcium Level 9.0mg/dL (8.5-10.1) Total Bilirubin 0.3mg/dL (0.0-1.2) Aspartate Amino Transf (AST/SGOT) 23U/L (0-50) Alanine Aminotransferase (ALT/SGPT) 16U/L (0-44) Alkaline Phosphatase 90U/L (25-160) Total Protein 7.8g/dL (6.4-8.4) Albumin 3.4g/dL (3.4-5.0) General Lab Results Interp 1: Labs reviewed Re-Eval/Medical Decision Source of Hx: Old records Time of Eval: 16:31 Re-Evaluation/Progress Note: Pt understands and agrees with plan for admission. Will have Pic line placed in the floor with plan for antibiotics tomorrow. Discussed pain control. All questions addressed. Consultation : Referral / Consult Name: Pascual Zuleta MD Call Returned at: 15:30 Process Safety Engineering Technologist: Will see patient, Agrees with eval, Agrees with plan, Accepts admit Counseled Regarding: Diagnosis, Lab results, Need for admission Discharge & Departure Primary Impression: Osteomyelitis of right foot Chronicity: chronic Qualified Code: M86.671 - Other chronic osteomyelitis, right ankle and foot Additional Impression: Diabetic ulcer of right foot associated with diabetes mellitus due to underlying condition Disposition: ADMITTED TO HOSPITAL Discharge Condition All VS Reviewed: Yes Referrals: Eva Hope (PCP) Cocheba, Kameron R DPM Scribe Attestation Portions of this note were transcribed by Gypsy Moulton. I, (Tamanna Trevino MD ) personally performed the history, physical exam and medical decision-making; I reviewed and confirmed the accuracy of the information in the transcribed note. Signed by: Gypsy Moulton. 07/05/2016, 8230 copies to: Kameron Starkey DPM; Eva Hope Shawna L MD Jul 05, 2016 12:36 Gypsy Moulton Jul 05, 2016 12:51
[2016-07-05] MEDS ORDERED: Ertapenem Inj 1,000 MG in 0.9% Sodium Chloride 50 ML IV ONE (12:50)
[2016-07-05 13:26] LABS: Mean Corpuscular Hemoglobin 25.8 pg (27.0-35.0); Mean Corpuscular Volume 81 fL (81-100); NEUTROPHILS % (AUTO) 67 % (40-74); Platelet Count 240 bil/L (150-400)
[2016-07-05 13:27] LABS: BASOPHILS % (AUTO) 0 % (0-3); EOSINOPHILS % (AUTO) 4 % (0-5); MONOCYTES % (AUTO) 5 % (4-12)
--- NOTE | 2016-07-05 15:40 | PCM.HPMED ---
Subjective Date of Service Jul 05, 2016 Primary Provider: Admitting Physician: Primary Care Physician: Eva Hope Attending Physician: Chief Complaint: Back for IV antibiotics for his foot History of Present Illness: 65 year old male with a history of diabetes, chronic osteomyelitis of R calcaneus and Afib presents to the ED referred from the time clock inspector, Dr. Starkey for a PIC line and antibiotics. Pt has had a chronic R foot infection for years , which worsened in the last week. Pt was hospitalized last week for recurrent wound/osteomyelitis of the calcaneus of the right foot. Patient was being started on clindamycin as he has had resistant staph aureus as well as multidrug resistant Morganella Morganii in the past. Left AMA on while working on home infusion therapy of ertapenem which was supposed to continue through Aug 13. He states he left AMA because he was depressed. Pt has not been taking antibiotics since he left. Pt reports subjective fever. Denies chills, CP and SOB. Review of Systems: Denies any new issues from the last time we met. Allergies Coded Allergies: Sulfa (Sulfonamide Antibiotics) (Verified Allergy, Severe, yeast infection and near kidney failure, 07/05/16) hydrochlorothiazide (Verified Allergy, Severe, RASH, 07/05/16) carvedilol (Verified Adverse Reaction, Severe, DEPRESSION, 07/05/16) Home Medications Furosemide (Furosemide) 40 Mg Tablet 40 MG PO DAILY Lisinopril (Lisinopril) 10 Mg Tablet 10 MG PO DAILY Oxycodone ER (Oxycontin) 15 Mg Tab.er.12h 15 MG PO TID Potassium Chloride ER (Potassium Chloride ER) 10 Meq Tablet 10 MEQ PO DAILY Warfarin Sodium (Jantoven) 10 Mg Tablet 10 MG PO ,,,Fr,Samano Warfarin Sodium (Warfarin Sodium) 10 Mg Tablet 15 MG PO Fri,Fri Scheduled PRN oxyCODONE (oxyCODONE) 20 Mg Tablet 20 MG PO Q4H PRN PRN For Pain PMH Osteomyelitis, right calcaneus Diabetic ulcers Type 2 diabetes with peripheral neuropathy CHF Atrial fibrillation Past Surgical History Partial amputation status, both feet Pacemaker/ AICD placement and removal Family History-does not really know any of his family history Smoking History Current Every Day Smoker Social History Drug Use: Denies drug use Other Social History: Local resident Social History Hx Alcohol Use: No (stopped 8 years ago.) Hx Substance Use: No Hx Tobacco Use: Yes Smoking Status: Current Every Day Smoker Exam Vital Signs Vital Sign - Last Date Time Temp Pulse Resp B/P Pulse Ox O2 Delivery O2 Flow Rate FiO2 07/05/16 12:05 36.7 88 16 146/79 100 Room Air Exam Gen.- White male sleeping in bed easily roused recognized me from prior admission A+ O 3 no apparent distress. 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 Scheduled to get a PICC line in the a.m. and 07/06 and then we need to make arrangements for the IV antibiotics which apparently is going to prove difficult. Heel ulcer/osteomyelitis-resume ertepanem 1 g IV every 12 as previously. I am not sure whether there was a surgical plan. Peripheral vascular disease-recommend smoking cessation Paroxysmal A. fib-normally on warfarin, we are holding it secondary to the expectation for surgery perhaps early next week please confirm or resume it if needed. We should probably use full strength heparin until we know about the surgery for sure Tobacco abuse-smoking cessation and nicotine replacement Probable depression-I would get spiritual counseling and start him on Celexa. Prophylaxis-DVT we will utilize enoxaparin 1 mg/kg every 12 and SCD on good foot. GI not indicated Disposition- full code from home Pascual Zuleta MD Jul 05, 2016 15:40
[2016-07-05] MEDS ORDERED: Alum-Mag Hydrox-Simeth 30 mL Suspension PO PRN ×2 (15:55→21:23)
[2016-07-05] MEDS ORDERED: Ondansetron 2 mg/mL 2 mL Inj IVPUSH PRN (15:55)
[2016-07-05] MEDS ORDERED: Polyethylene Glycol (PEG) 17 Gm Powder PO PRN (16:00)
[2016-07-05] MEDS ORDERED: OXYC15TA73 PO (16:05)
[2016-07-05] MEDS ORDERED: WARF10TA4 PO (16:05)
[2016-07-05] MEDS ORDERED: POTA10TA12 PO (16:05)
[2016-07-05] MEDS ORDERED: OXYC20TA4 PO (16:05)
[2016-07-05] MEDS ORDERED: LISI10TA PO (16:05)
[2016-07-05] MEDS ORDERED: Sodium Chloride LOK Flush 10 mL Syringe IVFLUSH PRN ×2 (16:15)
[2016-07-05 17:31] VITALS: BP 118/73; PULSE 70; RESP 18; O2SAT 100
--- NOTE | 2016-07-05 19:50 | NUR ---
Arrived to [facility]: Patient arrived to [facility] from the ER at 1730. Patient is alert and oriented x3 and stated that he recieved pain med in the ER and his pain is under controle . Patient ordered dinner. He is scheduled to have a PICC line placed in the morning for his Home ABT for his Osteomyelitis. Patient was oriented to his room care givers and call light . His physical assessment showed he has scattered scabs on his limbs and a wound on his right heel that is being followed by wound care with packing in place in the wound cavity. The foot was wrapped to protect the area.
[2016-07-05] MEDS ORDERED: WARFARIN SODIUM 10 MG PO SCH (20:10)
[2016-07-05] MEDS ORDERED: WARFARIN SODIUM 15 MG PO SCH (20:10)
[2016-07-05] MEDS: Sodium Chloride LOK Flush 10 mL Syringe IVFLUSH SCH (20:35)
[2016-07-05 20:54] VITALS: BP 114/72; PULSE 62; RESP 18; O2SAT 98
[2016-07-05 21:24] LABS: INR 1.06 ratio
[2016-07-05] MEDS ORDERED: oxyCODONE ER 10 mg ER12 Tablet PO ONE (22:00)
--- NOTE | 2016-07-05 22:20 | PCM.CONPHA ---
Assessment/Plan Assessment/Plan ANTICOAGULATION MANAGEMENT BY PHARMACY -INDICATION: AFIB -HOME DOSE: 15 MG WED,SAT AND 10 MG FRI,FRI,,FRI,FRI -CONCURRENT ANTICOAGULATION: LOVENOX 40 MG DAILY -CRCL: 127.42 ML/MIN -COAG TRENDS: Date -Jun INR 1.06 -[id number] SCORE: 3 PLAN: TONIGHT WE WILL NOT GIVE A DOSE OF WARFARIN DUE TO MD NOTES SECONDARY TO THE EXPECTATION FOR SURGERY. PHARMACY WILL CONTINUE TO MONITOR PATIENT AND DOSE WARFARIN WHEN SURGERY COMPLETE (OR WHEN APPROPRIATE) BASED ON PROTOCOL. THANK YOU! ELSIE JESUS PHARMD Elsie Jesus PharmD Jul 05, 2016 22:20
[2016-07-05] MEDS ORDERED: 0.9% Sodium Chloride 250 ML ONE (22:44)
[2016-07-06] MEDS: Sodium Chloride LOK Flush 10 mL Syringe IVFLUSH SCH ×3 (00:29→16:52)
[2016-07-06] MEDS: Ertapenem Inj 1,000 MG in 0.9% Sodium Chloride 50 ML IV SCH ×2 (01:33→13:06)
[2016-07-06 02:03] VITALS: BP 116/74; PULSE 63; RESP 16; O2SAT 100
[2016-07-06 05:15] VITALS: BP 115/75; PULSE 59; RESP 18; O2SAT 98
[2016-07-06 07:11] LABS: INR 1.08 ratio
--- NOTE | 2016-07-06 08:04 | NUR ---
Pain Pt has chronic pain for foot neuropathy and wound, reports taking oxycodone at home PRN. Pt reports pain from 2-01/06 depending on medication. Pt given Q4H PRN PO oxycodone and Extended Release oxycodone BID for pain management. Monitoring regularly through shift for pain management.
[2016-07-06] MEDS: oxyCODONE ER 20 mg ER12 Tablet PO SCH ×2 (08:15→19:58)
[2016-07-06] MEDS ORDERED: Heparin Protocol Boluses IVPUSH PRN (11:00)
[2016-07-06] MEDS ORDERED: Heparin 25K Unit/500mL 0.45 NS 25,000 UNIT in IV Premix 1 EACH IV SCH (11:00)
--- NOTE | 2016-07-06 11:02 | PCM.PHAPRO ---
Progress Anticoagulation update: -pt has been on warfarin for afib, currently being held for anticipation of surgery -called hospitalist this am to confirm if Lovenox 40mg subq was to be continued -Plan: to discontinue the Lovenox and begin cardiac Heparin infusion protocol, no bolus Ana Turcios [facility] Jul 06, 2016 11:02
--- NOTE | 2016-07-06 11:08 | NUR ---
Heparin drip on hold Patient had order placed for Heparin drip. Nurse verified with MD of order. MD discussed with Resident about plans for patient and MD verbalized nurse to call Renee in pharmacy and tell her to hold the order until further notice.
--- NOTE | 2016-07-06 12:31 | PROG NOTE ---
[address] [address] PROGRESS NOTE PATIENT: TRIPP ZHOU : 1950 MR#: [id number] ADMIT: 07/05/2016 JOB ID: [id number] DATE: 07/06/2016 SUBJECTIVE: The patient at bedside resting comfortably. Unfortunately, he had elected to leave the hospital AMA prior to receiving a PICC line and appropriate followup plan just a couple of days ago. He contacted the [facility] on Friday and was directed to readmit and complete these tasks, so that we can move him towards a better state of healing and health. As the cause of his leaving, he describes profound depression and feeling loss of control. He states that as he left the other day the only thing he could think of was getting control of what he could which was "escaping the hospital." He is remorseful about that decision, realizes that it was not to his benefit and was not fair to those people who have invested time and effort in his care. He assures me that he is willing to carry through this time and is also willing to consider an anxiolytic or similar medication that might serve as a help to him through this difficult time. He does state that he feels a little under the weather today. He describes achiness and a fullness around his sinuses and a hint of a sore throat but no acute signs of infection. He denies any fevers, although he states that during the time he was at home he did have a couple of night sweats. He was off of IV antibiotics during that time. States his appetite is subdued. Otherwise, he feels fairly well but understandably depressed. OBJECTIVE: Vitals: BP is 115/75, pulse 59, respirations 16, temperature 36.6 p.o. Pulse oximetry shows 98% on room air. Laboratory findings include white count of 8.1, H and H of 13.1 and 40.8. The patient shows no left shift. Creatinine is 0.7. Random glucose 145. Dressings to the right lower extremity are clean, dry and intact. These were placed during his admission. He still has the looped wick within the wound base as I had placed prior to his leaving AMA. The wound site is actually in remarkably good shape without considerable erythema. There is exposed bone plantarly. Some of this is devitalized and would benefit from a bedside debridement either later today or tomorrow. The wound margins, however, do appear to be improved. Previous plantar calcaneus wound does show a slight clear exudate. This is just medial to the current wound. Overall, the foot appears to be doing all right. The contralateral foot is noted to have a very thick cutaneous horn at the distal great toe at previous site of amputation. This could be residual nail follicle or other debris but may simply be a mechanical manifestation as well. I would like to reduce this, as it is causing him some discomfort but will do so at bedside tomorrow. No other new findings. ASSESSMENT: 1. Whiting grade 3 diabetic ulceration to the right heel. 2. Osteomyelitis, right calcaneus. 3. Diabetes, with neurologic manifestations. PLAN: After evaluating the patient today, I did have a renata discussion with him over the importance of staying through this admission. Goals of admission would be to initiate PICC line and antibiotics as previously outlined by Dr. Mccoy. The cultures of both sensitive to ertapenem. The patient has been on home IV antibiotics in the past and is capable of administering this for himself. He is given a potential outline of plan for outpatient surgical intervention for the heel after a few more days of IV antibiotics. Ideally, a couple more days would be of great benefit to salvaging more of the calcaneus. I anticipate at least a cm of the posterior and inferior aspects of the calcaneus would need to be resected. This would obligate reattaching the Achilles tendon. It is possible that the insertion may be spared but some of the nidus identified on his radiograph appears close enough that an anchor may become necessary. The patient has committed to this plan and would be able to discharge to home with stable vitals and systemic function along with PICC line and home antibiotics. This to be more likely Friday given organization of those resources. That way, I could do the partial calcanectomy on or Friday as scheduling allows. The patient's questions are answered. I will follow him mid morning tomorrow for dressing change and continued management.
[2016-07-06] MEDS ORDERED: LORazepam 0.5 mg Tablet PO PRN (13:20)
--- NOTE | 2016-07-06 15:24 | DRSVH ---
PROCEDURE: X-RAY PICC LINE PLACEMENT BY NURSE ([id number]) INDICATIONS: extended IV antibiotics COMPARISON: [facility], CR, XR PICC LINE PLACE BY NURSE, 08/08/2015, 15:40. FINDINGS: PICC was placed by the intravenous therapy team from the right side. Fluoroscopic spot fi lm demonstrates tip of PICC in the cavoatrial junction. IMPRESSION: Tip of PICC lies projects at the cavoatrial junction. Dictated by: Olman Aldridge M.D. on 07/06/2016 at 15:22 Approved by: Olman Aldridge M.D. on 07/06/2016 at 15:22
--- NOTE | 2016-07-06 16:11 | PCM.PHAPRO ---
Progress Warfarin Management by Pharmacy: -Indication: afib -Home Dose: warfarin 15mg on We,Sa and 10mg all other days -Concurrent Anticoagulation: none -Coag Trends: Inr was 1.06 on admission 07/05 Inr today is 1.08 Date INR 1.06 -[id number]: 3 -Plan: has been discussion whether warfarin is to be held prior to Dr. Starkey' s procedure next week. Spoke with Dr. Ramos and it has been determined to resume warfarin this evening. No bridge is indicated Ana Turcios [facility] Jul 06, 2016 16:11
[2016-07-06 17:06] VITALS: BP 101/65; PULSE 96; RESP 18; O2SAT 100
[2016-07-06] MEDS ORDERED: Glucose 40% Oral Gel 15 Gm Tube PO PRN (20:50)
--- NOTE | 2016-07-06 20:52 | PCM.PNMED ---
Subjective Date of Service Jul 06, 2016 Subjective Patient reports that he is doing well. Pt reports that he has been doing well. He denies any fevers, chills, nausea, vomiting, diarrhea, or myalgias. Exam Vital Signs Vital Sign - Last Date Time Temp Pulse Resp B/P Pulse Ox O2 Delivery O2 Flow Rate FiO2 07/06/16 17:06 36.6 96 18 101/65 100 Room Air Intake and Output 07/05/16 07/05/16 07/06/16 Cumulative From/Thru 15:00 23:00 07:00 07/05/16 12:05 - 07/06/16 06:38 Intake Total 473 ml 200 ml 673 ml Output Total 240 ml 500 ml 740 ml Balance 233 ml -300 ml -67 ml Intake Oral 473 ml 200 ml 673 ml Output Urine Total 240 ml 500 ml 740 ml # Bowel Movements 0 0 0 Exam General: No acute distress, well-developed, well-nourished, appropriately interactive HEENT: Normocephalic, atraumatic. External ears without defect. Pupils equal, round, and reactive to light and accommodation. Anicteric sclerae, moist conjunctivae. Oropharynxwith moist mucosa. Neck: Supple with full range of motion. Cardiovascular: Regular rate and rhythm with no murmurs, rubs, or gallops appreciated Pulmonary: Clear to auscultation bilaterally with no crackles, wheezes, or rhonchi. Normal respiratory effort with no use of accessory muscles. Abdomen: Bowel tones present. Soft, nontender, nondistended. Extremities: Wound covered with bandage on right foot. No toes on right foot. Left foot also without toes. Skin: Normal temperature, turgor, and texture; no rash, ulcers, or subcutaneous nodules appreciated. Psychiatric: Normal mood and affect. Alert and oriented to person, place, and time. IVs and Medications Medications Reviewed: Medications were reviewed in detail Lab and Diagnostics Result Diagram: 07/05/16 1315 07/05/16 1315 Assessment & Plan Chronic diabetic ulcer of right heel, present on admission, ongoing - Podiatry will follow and address wound and dressings -Pt has been non-adherent with treatment plans in the past -Recommend strong planning regarding discharge and follow up Osteomyelitis of right calcaneus, present on admission, ongoing -Per Podiatry, pt to have PICC placed, and plan to leave with PICC in place and home infusions. -Pt on Ertapenem 1gm -Surgery with podiatry to occur outpatient. Uncontrolled diabetes mellitus type 2, present on admission, ongoing -Low dose correction ordered -A1C pending Chronic afib with anticoagulation present on admission, ongoing -Continue warfarin per Podiatry. Tobacco use present on admission, ongoing -Encouraged cessation Anxiety, present on admission, ongoing -Pt has Lorazepam 0.5-1.0mg q 8 hours prn -Will recommend outpatient follow up for daily maintenance medication -Pt will not be discharged with lorazepam -started on Citalopram Prophylaxis-DVT we will utilize enoxaparin 1 mg/kg every 12 and SCD on good foot. Disposition- full code from home Pain Evaluation: Adequate Pain Control Resuscitation Status: CPR: Attempt Resuscitation Attending Statement The patient was seen and examined together with Dr. Lin on 07/06/2016 and I agree with the history, exam and plan as outlined in the note above. Amanda Lin DO Jul 06, 2016 20:52 Jamir Ramos MD Jul 07, 2016 11:18
[2016-07-06 21:00] VITALS: BP 106/66; PULSE 50; RESP 16; O2SAT 96
[2016-07-06] MEDS: Insulin LISPRO 300 Unit/3 mL Inj SUBQ SCH (22:00)
[2016-07-07] MEDS: Ertapenem Inj 1,000 MG in 0.9% Sodium Chloride 50 ML IV SCH ×2 (03:46→12:47)
[2016-07-07] MEDS: Sodium Chloride LOK Flush 10 mL Syringe IVFLUSH SCH ×4 (03:46→20:54)
[2016-07-07 04:56] VITALS: BP 114/78; PULSE 71; RESP 18; O2SAT 98
--- NOTE | 2016-07-07 05:24 | NUR ---
Package Sorter Pt cooperative with care. Reports continuous pain up around 5/10 for Right heel. PRN Q4Hour medications administered. Pt able to sleep during shift.
[2016-07-07 05:25] LABS: BASOPHILS % (AUTO) 0.3 % (0-3); EOSINOPHILS % (AUTO) 4.8 % (0-5); MONOCYTES % (AUTO) 7.5 % (4-12); Mean Corpuscular Hemoglobin 25.4 pg (27.0-35.0); Mean Corpuscular Volume 81.3 fL (81-100); NEUTROPHILS % (AUTO) 62.2 % (40-74); Platelet Count 210 bil/L (150-400)
[2016-07-07 05:51] LABS: INR 1.09 ratio
[2016-07-07] MEDS: Insulin LISPRO 300 Unit/3 mL Inj SUBQ SCH ×4 (08:00→20:52)
[2016-07-07] MEDS: oxyCODONE ER 20 mg ER12 Tablet PO SCH ×2 (08:07→20:53)
--- NOTE | 2016-07-07 08:15 | NUR ---
Refused Nicotine patch patient refused Nicotine patch this AM and states," i no need it , i do not feel urge to smoke."
--- NOTE | 2016-07-07 08:35 | NUR ---
SHAYNE signed STACEY Zamora
--- NOTE | 2016-07-07 09:20 | NUR ---
Social Work: Initial Assessment Data: Pt is a 65 y/o male admitted for osteomyletis heel. Pt's PCP is Dr Hope, pt's insurance is [employer] with [facility] supp. EMR reviewed, SUMMER CLERK met with pt at bedside, role explained. Pt states he lives alone in a single story home where he uses a staff occasionally. Pt states he drives and has his car at hospital for d/c. Pt states he is open with [facility]. Pt reports that he has history at [facility]. 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 Pt refused to give an additional psychologist personnel to call. Pt reports no DPOA and declined information. SUMMER CLERK left contact information on board. SUMMER CLERK will continue to follow. Assessment: Pt who is independent at baseline. Plan: Pt will likely d/c home via POV with resume [facility]. SUMMER CLERK will continue to follow. STACEY Zamora Addendum: 07/07/16 at 0923 by NINA DUNN Amended: Links added.
--- NOTE | 2016-07-07 11:07 | PCM.PNMED ---
Subjective Date of Service Jul 07, 2016 Subjective Pt doing well. No complaints or concerns at this time. Pt denies any pain in his heel. He denies any fever, chills, or erythema over his foot. Exam Vital Signs Vital Sign - Last Date Time Temp Pulse Resp B/P Pulse Ox O2 Delivery O2 Flow Rate FiO2 07/07/16 04:56 36.6 71 18 114/78 98 Room Air Intake and Output 07/06/16 07/06/16 07/07/16 Cumulative From/Thru 15:00 23:00 07:00 07/05/16 12:05 - 07/07/16 06:35 Intake Total 60 ml 874 ml 300 ml 1907 ml Output Total 250 ml 400 ml 1390 ml Balance 60 ml 624 ml -100 ml 517 ml Intake Oral 874 ml 200 ml 1747 ml IV Total 60 ml 100 ml 160 ml Output Urine Total 250 ml 400 ml 1390 ml # Bowel Movements 0 0 Exam GENERAL: NAD, Pt laying in bed comfortably HEENT: AT/NC, PERRLA, EOMI, Mucus Membranes are moist CARDIAC: RRR; No M/R/G PULM: CTAB; No wheezes or rhonchi bilaterally EXT: No C/C/E; No calf tenderness bilaterally SKIN: Right foot is wrapped with dressing NEURO: Alert and oriented x3; Following all commands IVs and Medications Medications Reviewed: Medications were reviewed in detail Lab and Diagnostics Result Diagram: 07/07/16 0500 07/07/16 0500 Assessment & Plan 1. Osteomyelitis, Right Calcaneus - Present on admission - Continue IV Ertrapenem for now - Podiatry following - PICC line has been placed - Will arrange for IV ABX at home - Pt to have portion of calcaneus removed later this week, per Podiatry, as an outpatient 2. Diabetes Mellitus, Type II - Uncontrolled - Continue SSI - Continue checking FSBS q AC and HS 3. Atrial Fibrillation, Paroxysmal - INR remains therapeutic - Continue Warfarin, per Pharmacy dosing - Recheck INR in AM 4. Anxiety - Continue PO Lorazepam PRN - Continue Citalopram 5. Tobacco Use Disorder - Pt counseled to quit smoking 6. Disposition - Anticipate discharge to home in AM with IV ABX to be infused at home VTE Mechanical Devices: Intermittant Pneumatic CD Resuscitation Status: CPR: Attempt Resuscitation Jamir Ramos MD Jul 07, 2016 11:07
--- NOTE | 2016-07-07 12:11 | NUR ---
Pain, Constipation, Anxiety patient c/o increased pain to right foot 6/10 and states," Doctor said i can that pain medication and anxiety pill." dressing was changed yesterday per patient. PRN given as ordered with effective results. patient aslo c/o constipation and states," i have not have bowel movement in 3 days." PRN Miralax give as ordered. c/o mild anxiety PRN anti anxiety given as ordered with effective results.
[2016-07-07 14:37] VITALS: BP 111/77; PULSE 52; RESP 18; O2SAT 96
--- NOTE | 2016-07-07 16:09 | NUR ---
Social Work: Continued d/c planning Data: Pt is on day 2 of hospitalization. EMR reviewed, pt discussed in rounds. states pt will need IVABX at d/c until . FORM DRAFTER spoke with pt regarding preference, pt reports no preference for company. FORM DRAFTER referred to rotating calendar, [facility] referred. FORM DRAFTER spoke with the pharmacist, Beena, and faxed H&P and Facesheet to her at [phone]. She states she will review it tonight and call FORM DRAFTER back on 07/08. FORM DRAFTER will continue to follow. Assessment: Pt who is independent at baseline. Plan: Pt will d/c home via POV when medically stable, likely tomorrow, with resume [facility] and have IVABX through [facility]. FORM DRAFTER anticipating phone call from [facility] on 07/08. FORM DRAFTER will continue to follow. STACEY Zamora
--- NOTE | 2016-07-07 17:30 | PROG NOTE ---
[address] [address] PROGRESS NOTE PATIENT: TRIPP ZHOU : 1950 MR#: [id number] ADMIT: 07/05/2016 JOB ID: [id number] DATE: 07/07/2016 SUBJECTIVE: The patient is resting comfortably at bedside. States he has had some pain or aching in the left heel but not as acutely as prior. He denies any fevers, nausea, vomiting, or other constitutional signs of infection. Did have some trouble with constipation which is being managed. He has some questions about discharge planning and the plan going forward. He elaborates on plan for home health and his determination to see this through. He expresses some remorse at having left before but still blames this upon having felt acutely depressed. He was started on an antidepressant but understands it may take two or three days for this to help. Overall, he is very grateful for the care he has received. OBJECTIVE: Vitals: BP is 114/78, pulse 71, respirations 18, temperature 36.6 p.o. Pulse oximetry shows 98% on room air. PERTINENT LABORATORY DATA: Includes a white count at 7.8, down from 8.1. H and H stable 12.2 and 39.1. Pertinent micro findings include Proteus mirabilis in the bone biopsy which is sensitive to ertapenem as well as the previously identified species. Dressings are CDI to the right lower extremity. I removed these, and find only scant serosanguineous drainage at the wound site. The patient is noted to have seroma developing under the plantar lateral and lateral healed wound sites. These areas were debrided free of callus to reveal stable dermis. This may be a manifestation perhaps of the patient's reduced edema and some autolytic activity. The patient does have fragmented bone within the wound site which I excised today. However, the healthy bone deeper to this has capitated with new granular tissue. There is no purulence noted within the wound site. ASSESSMENT: 1. Whiting grade 3 diabetic ulceration to the -[ 2. Right heel. 3. Osteomyelitis, right calcaneus. 4. Diabetes with neurologic manifestations. PLAN: After evaluating the patient at bedside today, I did find it necessary to perform some sharp debridement upon the plantar wound bed. This was excisional debridement through skin and subcutaneous tissue including bone excised with the center portion of the wound. This produced healthy bleeding which was controlled with pressure. I then repacked the wound with Iodoform gauze, saline moistened gauze, dry gauze, Kerlix, and a stocking. I also reduced the keratosis around previous wound sites on the medial side of the heel. The patient is also noted to have a cutaneous horn growing at a previous chronic wound site of the distal aspect of his left foot. This was excised with a #10 scalpel, causing no bleeding. The area will benefit from moisturization and preventive care once we resolve the contralateral side. The patient's questions are answered. This dressing should be changed on a q. 24-72 hour basis depending upon drainage. I plan to follow him tomorrow midday between my morning and afternoon clinic schedule. The patient may be ready for discharge tomorrow if home IV antibiotics can be provided. I will look into getting him onto my outpatient surgical schedule likely or Friday depending upon availability of space. Otherwise, I would be available for any questions or concerns that arise. My cell #[phone]. MTDD
[2016-07-07] MEDS ORDERED: 0.9% Sodium Chloride 250 ML ONE (20:48)
--- NOTE | 2016-07-07 22:08 | NUR ---
disorientation / dressing / Ambulation Pt endorses disorientation upon waking up. Stated that he was confused, could tell he was in hospital but "felt ilana loopy." Pt was easily reoriented and able to answer all orientation questions once he woke up more. Educated and advised using more APAP rather than Oxycodone for pain but pt declines stating that he is addicted to the Oxycodone and will withdrawal if he does not have this. Advised and educated pt to use the Oxycodone only as needed to keep pain tolerable. Will continue to monitor. Right foot dressing was said to be changed by MD on 07-07-16 per day shift. Kerlix Coband dressing C/D/I no discharge noted. Pt ambulated with 1 crutch to bathroom with slow but steady gait to use urinal. SBA for safety to help move IV pole with him. Care continues
[2016-07-07 22:29] VITALS: BP 120/71; PULSE 53; RESP 18; O2SAT 98
[2016-07-08] MEDS: Ertapenem Inj 1,000 MG in 0.9% Sodium Chloride 50 ML IV SCH ×2 (01:31→13:03)
[2016-07-08 04:02] VITALS: BP 118/80; PULSE 60; RESP 18; O2SAT 95
[2016-07-08 05:33] LABS: INR 1.16 ratio
--- NOTE | 2016-07-08 05:44 | NUR ---
Pain/activity Pt complains of pain on his right heel, 01/06. Administered PRN Oxycodone for pain. No complains afterwards. IV NS at TKO on picc line. Pt has been cooperative with care and uses call light appropriately. VSS, Denies chest pain, sob, n/v and abd discomfort. Pt has slept most of the night.
[2016-07-08] MEDS: Insulin LISPRO 300 Unit/3 mL Inj SUBQ SCH ×2 (08:00→11:44)
[2016-07-08] MEDS: oxyCODONE ER 20 mg ER12 Tablet PO SCH (08:04)
[2016-07-08] MEDS: Sodium Chloride LOK Flush 10 mL Syringe IVFLUSH SCH (08:05)
--- NOTE | 2016-07-08 09:19 | PCM.DIMED ---
Rosi Whitmore DO 07/08/16 0919: Discharge Instructions Date of Service Jul 08, 2016 Dates of Hospitalization Jul 05, 2016 at 16:54 Discharge Diagnosis Discharge Diagnosis Right foot osteomyelitis Essential primary hypertension Atrial fibrillation Diet Heart Healthy, Diabetic Activity No restrictions Call your provider Fever or Chills, Shortness of breath Patient Instructions Continue giving yourself the IV antibiotics until you the day of your surgery. You are to have your foot operated on by your mitering machine operator, Dr. Starkey on , 07/11/16. Go to ED if you have any sudden onset of fevers, chills, nausea or vomiting. Follow-up Provider: Kameron Starkey DPM Follow-up with PCP in: 1 week Jamir Ramos MD 07/09/16 1005: Rosi Whitmore DO Jul 08, 2016 09:19 Jamir Ramos MD Jul 09, 2016 10:05
--- NOTE | 2016-07-08 10:06 | NUR ---
Social Work-readiness for discharge: Data:EMR Reviewed. Pt is on day 3 of hospitalization for osteomyelitis per H&P. Pt may be ready to discharge later today or tomorrow. SUELLEN placed a call to Marilyn [facility] [phone] to discuss. Marilyn states they have referral and are checking pt's benefits. Marilyn to call SUELLEN back once more information is know. SUELLEN requested MD to write order for home IV abx. Pt will also need resume [facility] orders. SUELLEN will continue to follow. Assessment:Pt who would benefit from IV abx and HH services. Plan:Pt to discharge home when medically stable via POV. Pt will need resume [facility] orders. [facility] checking pt's benefits for home infusion. SUELLEN will continue to follow. STACEY Brennan
--- NOTE | 2016-07-08 11:43 | NUR ---
Social Work-readiness for discharge: Data:EMR Reviewed. SUELLEN received a call back from Marilyn at [facility] who confirms that pt's out of pocket cost would be around $635.00 for the week. SUELLEN followed up with pt who states he should be able to pay this amount of money. SUELLEN explained alternative options, SNF vs coming to hospital for IV abx. Pt wants to return home and feels like he will be able to afford this amount. SW placed a call back to Marilyn at [facility] who states she would like to come in and speak with pt and should be here between [phone]. SUELLEN updated pt and MD. Pt will also need resume [facility] services. SUELLEN will continue to follow. Assessment:Pt who will need HH and IV abx. Plan:Pt to discharge home when medically stable via POV. Pt will need resume HH orders through [facility]. [facility] liaison Marilyn to in to meet with pt between [phone]. Pt states he will be able to pay privately for infusion. SUELLEN will continue to follow. STACEY Brennan
[2016-07-08] MEDS ORDERED: INVANZ1I IV ×2 (12:37→13:30)
[2016-07-08] MEDS ORDERED: CITA20TA PO (12:37)
[2016-07-08 13:13] VITALS: BP 106/67; PULSE 62; RESP 18; O2SAT 99
--- NOTE | 2016-07-08 15:59 | NUR ---
Discharge Patient given discharge orders. Patient given discharge information and infusion nurse took prescription to fill. Patient explained verbally when to take next dose of medications. Patient given medication list and follow up information. Patient left with all personal belongings. Patient wheeled to main entrance by DENTAL RESIDENT.
--- NOTE | 2016-07-08 16:04 | NUR ---
Social Work-discharge: Data:EMR reviewed. Pt is on day 3 of hospitalization for osteomyelitis per H&P. Pt is ready to discharge home today. SUELLEN spoke with Marilyn from [facility] who came and saw pt and has worked out a plan with pt and they will be able to follow pt at home for IV abx. Marilyn has all orders and is ready to accept the pt today. Dr. Starkey from Podiatry is following pt and pt is scheduled to have surgery the end of this week. SUELLEN called [facility], pt is not currently open on services. SUELLEN faxed in new referral and F2F and orders for RN-wound care and PT to [phone]. All updated and agreeable to plan. Assessment:pt who will need IV abx. Plan:Pt to discharge home today via POV. IV abx have been arranged through [facility] and pt able to pay co-pay amount. F2F and orders faxed into [facility] for RN-wound care and PT. Pt to follow up with podiatry as an outpt this week for surgery. All updated and agreeable to plan. STACEY Brennan
--- NOTE | 2016-07-08 17:30 | PROG NOTE ---
[address] [address] PROGRESS NOTE PATIENT: TRIPP ZHOU : 1950 MR#: [id number] ADMIT: 07/05/2016 JOB ID: [id number] DATE: 07/08/2016 SUBJECTIVE: The patient is seen at bedside resting carefully. He denies any fevers, nausea, vomiting, or other constitutional signs of infection. States his pain is well controlled. He anticipates discharge later on today. They have been working on getting his outpatient IV medications arranged for. He is anxious to have the next stage in reconstruction of the calcaneus done sometime in the next week or so. We will be looking into scheduling that this Friday on an outpatient basis. OBJECTIVE: Vitals: BP is 118/80, pulse 60, respirations 18, temperature 36.5 p.o. Pulse oximetry shows 95% on room air. There are new no new labs or imaging. Micro also is unchanged. Dressings CDI to the right lower extremity. Upon removal, I find some serosanguineous drainage at the medial wound site but none beyond. Erythema is negligible. Granulation tissue continues to encroach and there is contraction at wound margins. Lateral egress incision also appear stable. Packing has serosanguineous exudate but no apparent purulence. There is no longer bony exposure in the plantar aspect and the two previous wound sites appear much improved after removal of keratoses at last visit. ASSESSMENT: 1. Whiting grade 3 diabetic ulceration of the right heel. 2. Osteomyelitis, right calcaneus. 3. Diabetes with neurologic manifestations. PLAN: After evaluating the patient today, I did irrigate the wound with normal saline and then replaced the iodoform packing wick with a [id number] technique. This can continue to be performed at home with a q. 48-72 hour dressing change until surgery which I anticipate to be Friday morning. We are looking at getting that on the schedule. The patient's questions are answered. I anticipate discharge later on today as he appears medically and surgically stable.
--- NOTE | 2016-07-08 19:38 | PCM.DC.MED ---
Discharge Summary Date of Service Jul 08, 2016 Dates of Hospitalization Date of Hospital Admission Jul 05, 2016 at 16:54 Date of Discharge: Jul 08, 2016 Providers: Admitting Physician: Pascual Zuleta MD Primary Care Physician: Eva Hope Attending Physician: Pascual Zuleta MD Diagnosis at Time of Discharge Diagnosis at Time of Discharge Right foot osteomyelitis Essential primary hypertension Atrial fibrillation Consultations Podiatry - Dr. Starkey Brief History 65 year old male with a history of diabetes, chronic osteomyelitis of R calcaneus and Afib presents to the ED referred from the faculty instructor, Dr. Starkey for a PIC line and antibiotics. Pt has had a chronic R foot infection for years , which worsened in the last week. Pt was hospitalized last week for recurrent wound/osteomyelitis of the calcaneus of the right foot. Patient was being started on clindamycin as he has had resistant staph aureus as well as multidrug resistant Morganella Morganii in the past. Left AMA on while working on home infusion therapy of ertapenem which was supposed to continue through Aug 13. He states he left AMA because he was depressed. Pt has not been taking antibiotics since he left. Pt reports subjective fever. Denies chills, CP and SOB. Hospital Course 1. Osteomyelitis, Right Calcaneus - Present on admission - Continue IV Ertapenem for now - Podiatry following - PICC line has been placed - Will arrange for IV ABX at home - Pt to have portion of calcaneus removed later this week, per Podiatry, as an outpatient 2. Diabetes Mellitus, Type II, uncontrolled - Continue SSI - Continue checking FSBS q AC and HS 3. Atrial Fibrillation, Paroxysmal - INR remains therapeutic - Continue Warfarin, per Pharmacy dosing 4. Anxiety - Continue PO Lorazepam PRN - Continue Citalopram 5. Tobacco Use Disorder - Pt counseled to quit smoking 6. Disposition - Discharged to home with IV ABX to be infused at home Exam Vital Signs (Last) Date Time Temp Pulse Resp B/P Pulse Ox O2 Delivery O2 Flow Rate FiO2 07/08/16 13:13 36.9 62 18 106/67 99 Room Air Exam General: NAD, well-developed, well-nourished HEENT: Normocephalic, atraumatic. Anicteric sclerae, moist conjunctivae. Oropharynx with moist mucosa. Cardiovascular: Regular rate and rhythm with no murmurs, rubs, or gallops appreciated Pulmonary: CTAB. Normal respiratory effort. Abdomen: Bowel tones present. Soft, nontender, nondistended. Extremities: Wound covered with bandage on right foot. No toes on right foot. Left foot also without toes. Skin: Normal temperature, turgor, and texture; no rash, ulcers, or subcutaneous nodules appreciated. Psychiatric: Normal mood and affect. Alert and oriented to person, place, and time Test 07/07/16 05:00 07/08/16 05:00 White Blood Count 7.8th/mm3 (3.8-10.1) Red Blood Count 4.81mil/mm3 (4.40-5.80) Hemoglobin 12.2g/dL (13.8-17.2) Hematocrit 39.1% (41.0-50.0) Mean Corpuscular Volume 81.3fL (81-100) Mean Corpuscular Hemoglobin 25.4pg (27.0-35.0) Mean Corpuscular Hemoglobin Concent 31.2% (32.0-37.0) Red Cell Distribution Width 16.2% (12.3-15.4) Platelet Count 210bil/L (150-400) Neutrophils (%) (Auto) 62.2% (40-74) Lymphocytes (%) (Auto) 24.9% (14-46) Monocytes (%) (Auto) 7.5% (4-12) Eosinophils (%) (Auto) 4.8% (0-5) Basophils (%) (Auto) 0.3% (0-3) Sodium Level 141mEq/L (134-144) Potassium Level 4.5mEq/L (3.5-5.2) Chloride Level 103mEq/L (97-108) Carbon Dioxide Level 29mmol/L (18-29) Blood Urea Nitrogen 22mg/dL (8-27) Creatinine 0.76mg/dL (0.76-1.27) Estimat Glomerular Filtration Rate 110mL/min (>59) Glucose Level 94mg/dL (60-99) Calcium Level 8.7mg/dL (8.5-10.1) Total Bilirubin 0.4mg/dL (0.0-1.2) Aspartate Amino Transf (AST/SGOT) 17U/L (0-50) Alanine Aminotransferase (ALT/SGPT) 13U/L (0-44) Alkaline Phosphatase 85U/L (25-160) Total Protein 6.8g/dL (6.4-8.4) Albumin 3.2g/dL (3.4-5.0) Prothrombin Time 12.4sec (8.1-12.5) Prothromb Time International Ratio 1.16ratio Discharge Medications Discharge Medications Citalopram Hydrobromide (Celexa) 20 Mg Tablet 20 MG PO DAILY Prescribed by: ROSI WHITMORE DO Ertapenem Sodium (Invanz) 1,000 Mg/10 Ml Vial 1,000 MG IV BID Prescribed by: EDER CUNNINGHAM DO Furosemide (Furosemide) 40 Mg Tablet 40 MG PO DAILY (Reported) Lisinopril (Lisinopril) 10 Mg Tablet 10 MG PO DAILY (Reported) Oxycodone ER (Oxycontin) 15 Mg Tab.er.12h 15 MG PO TID (Reported) Potassium Chloride ER (Potassium Chloride ER) 10 Meq Tablet 10 MEQ PO DAILY ( Reported) As needed oxyCODONE (oxyCODONE) 20 Mg Tablet 20 MG PO Q4H PRN PRN For Pain (Reported) Followup Plan Disposition: Home Discharge Diet: Heart Healthy, Diabetic Discharge Activity: No restrictions Patient Instructions Continue giving yourself the IV antibiotics until you the day of your surgery. You are to have your foot operated on by your faculty instructor, Dr. Starkey on , 07/11/16. Go to ED if you have any sudden onset of fevers, chills, nausea or vomiting. Follow-up Provider: Kameron Starkey DPM Follow-up with PCP in: 1 week Time spent 40 minutes Attending Statement The patient was seen and examined together with Dr. Whitmore on 07/08/2016 and I agree with the history, exam and plan as outlined in the note above. Rosi Whitmore DO Jul 08, 2016 19:29 Jamir Ramos MD Jul 09, 2016 10:05
== END 2016-07-08 15:59 | disposition home health service (06) | DRG 504 ==
LOC: SED 12:03 → MPC 16:54
PROVIDERS: ADMIT Hospitalist; ATTEND Hospitalist
PROC: 0QBL0ZZ Excision of Right Tarsal, Open Approach (ICD-10-PCS; principal; 2016-07-07)
PROC: 0HDNXZZ Extraction of Left Foot Skin, External Approach (ICD-10-PCS; 2016-07-07)
DX: M86.671 Other chronic osteomyelitis, right ankle and foot (principal); L97.414 Non-pressure chronic ulcer of right heel and midfoot with necrosis of bone; E11.621 Type 2 diabetes mellitus with foot ulcer; E11.42 Type 2 diabetes mellitus with diabetic polyneuropathy; F17.210 Nicotine dependence, cigarettes, uncomplicated; I48.0 Paroxysmal atrial fibrillation; I73.9 Peripheral vascular disease, unspecified; F41.9 Anxiety disorder, unspecified; L85.8 Other specified epidermal thickening; I10 Essential (primary) hypertension; E11.65 Type 2 diabetes mellitus with hyperglycemia

== ENCOUNTER 2016-07-12 06:20 | Day surgery (SDC) | payer MEDICARE, MEDICAID ==
[~2016-07-12] VITALS: Ht 193 cm; Wt 127.7 kg
[~2016-07-12 06:20] MED LIST changes: +CITA20TA PO; +INVANZ1I IV; -LISI-567 PO; +LISI10TA PO; -OXYC-474 PO; +OXYC15TA73 PO; +OXYC20TA4 PO; -OXYC30TA77 PO; +POTA10TA12 PO; -POTA20TA16 PO; -WARF10TA5 PO
[2016-07-12] MEDS ORDERED: fentaNYL-PF 50 mCg/mL 2 mL Inj ONE (06:21)
[2016-07-12] MEDS ORDERED: Propofol 10,000 mCg/mL 20 mL Inj ONE (06:21)
[2016-07-12] MEDS: Lactated Ringer's 1,000 ML IV SCH ×2 (06:24→09:26)
[2016-07-12 06:56] VITALS: BP 116/65; PULSE 72; RESP 16; O2SAT 97
--- NOTE | 2016-07-12 07:15 | PCM.HPANE ---
Patient Data Surgeon Admitting Provider: Attending Provider:Kameron Starkey DPM Primary Care Physician:Eva Hope Other Provider:Antionette Laguna Anesthesia Reason for Visit Right Foot Osteomyelitis Ht/WT & BMI Height (Feet): 6 Height (Inches): 4.00 Weight (Kilograms): 127.7 Body Mass Index 34.00 Allergies Coded Allergies: Sulfa (Sulfonamide Antibiotics) (Verified Allergy, Severe, yeast infection and near kidney failure, 07/05/16) hydrochlorothiazide (Verified Allergy, Severe, RASH, 07/05/16) carvedilol (Verified Adverse Reaction, Severe, DEPRESSION, 07/05/16) Past Anesthesia History Anesthesia History: Denies:: Abnormal Airway, Anesthesia Reactions, Difficult Intubation, Malignant Hyperthermia Diabetes History Hx Diabetes?: Yes Type of Diabetes: Type II Glycemic Control: Diet Controlled Current Bedside Blood Glucose: 107 MRSA MRSA: Yes (current infection) Medications Blood Thinner: Coumadin Last Dose Blood Thinner: Jul 09, 2016 Hypertension Medication: Yes Home Meds Incl Beta Javad: No Active Scripts Ertapenem Sodium (Invanz)1,000 Mg/10 Ml Vial1,000 Mg IV BID #4 VIAL Prov:Reymundo Rae DO 07/08/16 Citalopram Hydrobromide (Celexa)20 Mg Sfmywn97 Mg PO DAILY #30 TABLET Prov:Rosi Whitmore DO 07/08/16 Reported Medications Potassium Chloride ER 10 Meq Qmhhzb49 Meq PO DAILY 07/05/16 oxyCODONE 20 Mg Rxpqls43 Mg PO Q4H PRN For Pain 07/05/16 Oxycodone ER (Oxycontin)15 Mg Tab.er.12h15 Mg PO TID 07/05/16 Lisinopril 10 Mg Shvnlv37 Mg PO DAILY 07/05/16 Furosemide 40 Mg Nmkrus64 Mg PO DAILY 07/10/15 Discontinued Reported Medications Warfarin Sodium 10 Mg Tpwcxj21 Mg PO Wed,Sat 07/05/16 Warfarin Sodium (Jantoven)10 Mg Lyysqb74 Mg PO Mo,,,Fr,Samano 03/03/15 Lisinopril 20 Mg Tbqtny79 Mg PO DAILY 30 Days Ref 0 08/05/15 Potassium Chloride 20 Meq Tab.er.prt20 Meq PO DAILY 30 Days Ref 0 TAKE WITH FOOD 08/05/15 Discontinued Scripts Oxycodone (Roxicodone)5 Mg Ihwgwq24 Mg PO Q2H PRN For Pain #14 TABLET Ref 0 Prov:Rio Moulton DO 08/11/15 Oxycodone ER (Oxycontin)30 Mg Tab.er.12h30 Mg PO TID 7 Days Prov:Rio Moulton DO 08/11/15 History History of ENT Problems?: No HEENT History: Positive for:: Hearing Problem Denies:: Abnormal Airway Cataracts Difficult Intubation Glaucoma Teeth Condition: Missing Teeth Hx of Heart Problems?: Yes Cardiovascular History: Positive for:: AICD (leads remain in place, device removed) Atrial Fibrillation (past hx of/ converted ) Cardiac Surgery (past hx of AICD) Congestive Heart Failure Edema Hypertension Irregular Heartbeat (A FIB) Thrombophlebitis (?DVT REFERENCE IN OLD RECORD) Denies:: Pacemaker Other Cardiac History: pt states had intentional weight loss of 140# (has since regained 30) after weight loss, cardiac rhythm converted and he no longer needed AICD- device has been removed, leads remain in place Hx of Respiratory Problem?: No Respiratory History: Denies:: Asthma COPD Tuberculosis Use of C-PAP Machine (has not needed since weight loss) Hx Neurologic Problems?: No Neurological History: Denies:: Alzheimer's Disease CVA Headaches Multiple Sclerosis Parkinson's Disease Seizures Hx of GI Problems?: Yes Gastrointestinal History: Positive for:: Hepatitis (past hx hep B ) Denies:: Gastroesphageal Reflux Heartburn Hx of Problems?: No Genitourinary History: Denies:: HX of Hemodialysis Kidney Stones Urinary Tract Infection Male Hx: Denies:: Prostate Problems Scrotal Mass Testicular Surgery Skin History: Denies:: History Skin Disorders? (chronic right foot ulcers ) Pressure Ulcers (R foot wound) Hx Musculoskeletal Problems?: Yes Musculoskeletal History: Positive for:: Back Injury Musculoskeletal Trauma (right foot current admission problem) Denies:: Joint Replacement Hx of Psycho/Social Problems?: No Psycho Social History: Denies:: Anxiety Hx Depression Hx Surgeries?: Yes (Rt toe amputation) Hx Any Other Health Problems?: Yes Other History: Positive for:: Hospitalization (for right foot wound 07/05/16-07/08) Denies:: Cancer Endocrine Disease Thyroid Disease History Blood Transfusions: Denies:: Blood Transfuse Reaction Blood Transfusions Hx Diabetes: YesBedside Blood Glucose: 107 Hx Alcohol Use: No (stopped 9-10 years ago.)Hx Substance Use: No Smoking Status: Current Every Day Smoker Have You Smoked inLast 12 mo: Yes Stop/Bang S-Snoring: Do You Snore Loudly: No T-Tired: feel tired, fatigued: Yes O-Obsered: Observed not breath: No P-Blood Pressure: treated: Yes B- Body Mass Index > 35 kg/m2: No A- Age over 50: Yes N- Neck Large Circumference: No G- Gender Male: Yes ASHLY Total Score: 4 ASHLY Risk Assessment: High Risk, =/>3 Yes ASHLY Category 4 OutPt Procedure: Yes Risk Assessment Category Category 1A: Patient has history of documented sleep apnea, and HAS NOT received any narcotic, sedative or anesthesia administration during this stay. Category 1B: Patient has history of documented sleep apnea, and HAS received any narcotic , sedative or anesthesia administration during this stay Category 2: Patient has SUSPECTED Obstructive Sleep Apnea, and HAS received any narcotic , sedative or anesthesia administration during this stay. Category 3: Patient has SUSPECTED Obstructive Sleep Apnea and HAS NOT received narcotic, sedative or anesthesia administration during this stay. Category 4: Outpatient in Procedural Areas with known sleep apnea or who screen positive for High Risk via the STOP/BANG questionnaire. Exam Exam Vital Signs Vital Signs Date Time Temp Pulse Resp B/P Pulse Ox O2 Delivery O2 Flow Rate FiO2 07/12/16 06:56 36.1 72 16 116/65 97 Room Air General Appearance: Alert, Oriented X3, Cooperative, No Acute Distress HEENT/AIRWAY: MP 2 Lungs: Clear to Auscultation, Normal Air Movement Heart: Exam Unremarkable, Regular Rate/Rhythm, No Murmurs/Rubs/Gallops Meds/Labs/Diagnostics Admission Meds Current Medications Lactated Ringer's (Lr) 1,000 ml @ 120 mls/hr Q8H20M IV Last administered on t 06:24; Start 07/12/16 at 05:00; Stop 07/12/16 at 13:19 Bedside Blood Glucose: 107 Plan Impression Patient chart reviewed, patient interviewed and anesthestic plan with risks, benefits, and alternatives discussed, and informed consent obtained. NPO Status: 07/11 at 2345 ASA Physical Status: ASA2 Mod Systemic Disease Anesthetic Plan: MAC Bene/Risks/Altern/Consents: Yes HP Complete Prior to Induction: Yes Reny Younger MD Jul 12, 2016 07:15
[2016-07-12 07:44] LABS: INR 1.05 ratio
[2016-07-12] MEDS ORDERED: Ertapenem Inj 1,000 MG in 0.9% Sodium Chloride 50 ML IV SCH (08:30)
[2016-07-12] MEDS ORDERED: Lactated Ringer's 1,000 ML IV SCH (09:39)
[2016-07-12] MEDS ORDERED: Lactated Ringer's 500 ML IV PRN (09:39)
[2016-07-12] MEDS ORDERED: HYDROmorphone 1 mg/mL Inj IVPUSH PRN (09:40)
[2016-07-12] MEDS ORDERED: EPHEDrine Sulfate 50 mg/mL Inj IVPUSH PRN (09:40)
[2016-07-12] MEDS ORDERED: fentaNYL-PF 50 mCg/mL 2 mL Inj IVPUSH PRN (09:40)
[2016-07-12] MEDS ORDERED: hydrALAZINE 20 mg/mL Inj IVPUSH PRN (09:40)
[2016-07-12] MEDS ORDERED: Atropine 0.4 mg/mL Inj IVPUSH PRN (09:40)
[2016-07-12] MEDS ORDERED: Labetalol 5 mg/mL 4 mL Inj IV PRN (09:40)
[2016-07-12] MEDS ORDERED: MetoCLOpramide 5 mg/mL 2 mL Inj IVPUSH PRN (09:40)
[2016-07-12] MEDS ORDERED: Phenylephrine 10,000 mCg/mL Inj IVPUSH PRN (09:40)
[2016-07-12] MEDS ORDERED: Ondansetron 2 mg/mL 2 mL Inj IVPUSH PRN (09:40)
[2016-07-12] MEDS ORDERED: Dexamethasone 4 mg/mL Inj IVPUSH PRN (09:40)
[2016-07-12] MEDS ORDERED: Gentamicin 40 mg/mL 2 mL Inj IRRIGATION ONE (09:53)
[2016-07-12] MEDS ORDERED: Lidocaine 1%-Epi 1:100,000 20 mL Inj NERVEBLOCK ONE (09:53)
[2016-07-12] MEDS ORDERED: Bupivacaine 0.5%/EPI 50 mL Inj INFILTRATE ONE (09:53)
[2016-07-12 10:54] VITALS: BP 102/58; PULSE 65; RESP 14; O2SAT 98
[2016-07-12 11:10] VITALS: BP 101/62; PULSE 67; RESP 14; O2SAT 97
[2016-07-12 11:31] VITALS: BP 109/66; PULSE 70; RESP 16; O2SAT 96
--- NOTE | 2016-07-12 12:06 | PCM.ANEP1 ---
Post Anesthesia Phase 1 PACU Phase 1 Assessment Vital Signs Vital Signs Date Time Temp Pulse Resp B/P Pulse Ox O2 Delivery O2 Flow Rate FiO2 07/12/16 11:31 70 16 109/66 96 Room Air 07/12/16 11:10 67 14 101/62 97 Room Air 07/12/16 10:54 36.4 65 14 102/58 98 Room Air 07/12/16 06:56 36.1 72 16 116/65 97 Room Air Anesthetic Administered: MAC Level of Alertness: Awake, talking ZEPEDA's with Equal Strength: Yes Pain: No Nausea or Vomiting: No Oxygen Delivery: Room Air Lungs: Clear to Auscultation, Normal Air Movement Reny Younger MD Jul 12, 2016 12:05
--- NOTE | 2016-07-12 14:11 | PCM.ANEP2 ---
Post Anesthesia Evaluation ASA/CMS Post Anesthesia VS in Patient's Normal Range?: Yes Resp Stable; Airway Patent?: Yes CV Function & Hydration Stable: Yes Mental Status Recovered?: Yes Pain control Satisfactory?: Yes N/V Control Satisfactory?: Yes Reny Younger MD Jul 12, 2016 14:11
--- NOTE | 2016-07-13 15:43 | OP ---
[address] [address] OPERATIVE REPORT PATIENT: TRIPP ZHOU : 1950 MR#: [id number] ADMIT: 07/12/2016 JOB ID: [id number] DATE OF SURGERY: 07/12/2016 SURGEON: Tripp Starkey DPM PREOPERATIVE DIAGNOSIS(ES): 1. Tabitha grade 3 diabetic ulceration post infection right foot. 2. Acute on chronic osteomyelitis of the right calcaneus. POSTOPERATIVE DIAGNOSIS(ES): 1. Tabitha grade 3 diabetic ulceration post infection right foot. 2. Acute on chronic osteomyelitis of the right calcaneus. PLANNED PROCEDURE: 1. Incision and drainage with pulse lavage of the right foot. 2. Partial calcanectomy of right foot. 3. Rotational myofascial and fasciocutaneous skin flap to the right foot. ANESTHESIA: Local with IV sedation. HEMOSTASIS: None. ESTIMATED BLOOD LOSS: Less than 20 cc. COMPLICATIONS: None. PROCEDURE AND FINDINGS: The patient was brought to the operating room and placed on table in supine position. He was placed under IV sedation. Afterwards, I performed a proximal ankle blockade with 2% lidocaine with epinephrine. Right lower extremity was prepped and draped in a normal sterile surgical manner. Attention was directed to the wound site which was excisionally debrided through skin and subcutaneous tissues using a #15 scalpel and a #10 scalpel and a curved iris scissor. I connected the lateral egress wound to the primary plantar wound. I then incorporated the plantar medial wound as well. Careful planning was utilized to create an incision that would not violate skin lines and it would allow for partial primary closure with delayed closure expected. This was retracted with a self-retaining retractor. I then secured a bone biopsy sent for culture and sensitivity from area of most likely infectious nidus. The patient also is noted to have several deep abscesses within the bone with either dysvascular or purulent content. Approximately 2 cm x 4 cm x 6 cm section of bone was removed with an osteotome and mallet. This was deepened serially until healthy cancellous bone was exposed. I then contoured this into a plantar surface that would be compatible with weightbearing. This spared the insertion of the Achilles tendon to an extent that I felt no further correction or repair of tendon would be necessary. I then utilized a pulse lavage to a total of 3 L of a gentamicin solution to fully irrigate the underlying and apparent healthy bone. The contours were all smoothed with a hand rasp. Once I had achieved healthy cancellous bleeding base, I secured a second bone biopsy to be sent for Pathology hopefully to show clear bone with minimal inflammatory changes and no nidal bacteria content. I then re-evaluated the wound and its flexibility of margins to achieve partial primary closure. The underlying fascial plane was pulled anterior to posterior whereas the dermal plane was rotated from lateral to medial anterior. This was temporarily secured with a series of fascial retention sutures with external knots using 0 Prolene. I then closed skin with a series of simple interrupted sutures with knots placed at the incision line. This was done from the plantar medial to plantar lateral aspect leaving the more proximal lateral incision open for drainage and for packing. I packed a small amount of saline moistened and gentamicin moistened gauze into the proximal portion of this and then covered the rest of it with more gentamicin solution soaked gauze. This was secured with three layers of Kerlix and then Maximino bandages were placed from the anterior aspect of the residual foot up to the tibial tuberosity with mild compression. The patient was transferred from the operating room in stable condition, having tolerated the procedure and anesthetic well. He experienced and expressed no discomfort other than his back while on table. POSTOPERATIVE PLAN: The patient will be followed this coming week in my [facility] schedule for change of dressings. We may be able to get him in for a primary change on Friday, but if not Friday, Friday. He will then return to home care plan including q.48-72 hour dressing changes and continued IV antibiotic therapy with ertapenem 1 g q.12 hours by PICC line. PICC line was flushed during his visit today. Dr. Mccoy of our Infectious Disease department will be monitoring this as well. Will carbon copy all treatments to him as well. My thanks to the surgical team and anesthesia for their expert assistance with this nice gentleman.
--- NOTE | 2016-07-16 13:42 | PATH ---
SURGICAL PATHOLOGY Attending Physician:Tripp Starkey DPM CASE STATUS: Signed Out PATIENT NAME: TRIPP ZHOU PID: [id number] : 1950 DATE COLLECTED:07/12/2016 16:29 SPECIMEN: Calculus CLINICAL HISTORY: A: CALCANEUS FINAL DIAGNOSIS: 1.TISSUE FROM CALCANEUS: BONE WITH ASSOCIATED CHRONIC INFLAMMATION AND FIBROSIS CONSISTENT WITH CHRONIC OSTEOMYELITIS. NEGATIVE FOR SIGNIFICANT BONE NECROSIS. ICD10 CODE M86.679 GROSS DESCRIPTION: The specimen is received in one formalin filled container labeled with the patient's name, sublabeled "right foot" and consists of 2 light pink michelle to michelle-arteaga friable rough portions of tissue which aggregate to 0.7 x 0.5 x 0.3 CM. The specimen is entirely submitted in cassette A. also received is a 0.7 x 0.7 x 0.5 CM portion of possible bone or firm tissue. The specimen is entirely submitted in cassette B. The specimen will be placed in decal for softening. 07/12/2016 DAC MICRO DESCRIPTION: See diagnosis. ICD-9 CODES: CPT CODES: 92978, 32582 Electronically Signed Out Abelardo Peraza MD [facility] Pathology [facility] [address], [place] [address] Technical component performed at [facility], [address] [place] [address] Ave[address], [place], [address]
== END 2016-07-12 23:59 | disposition home or self-care (01) ==
LOC: SAS 06:20
PROVIDERS: ATTEND Podiatrist
DX: M86.171 Other acute osteomyelitis, right ankle and foot (principal); E11.9 Type 2 diabetes mellitus without complications; I10 Essential (primary) hypertension; I48.91 Unspecified atrial fibrillation; I50.9 Heart failure, unspecified; R60.9 Edema, unspecified; F17.210 Nicotine dependence, cigarettes, uncomplicated; Z79.899 Other long term (current) drug therapy

== ENCOUNTER 2016-07-23 08:21 | Day surgery (SDC) | payer MEDICARE, MEDICAID ==
[2016-07-23 09:55] VITALS: BP 105/66; PULSE 89; RESP 16; O2SAT 93
--- NOTE | 2016-07-23 11:48 | NUR ---
PICC line IVT here to evaluate, xray taken, pt transferred to PICC suite at 1148
--- NOTE | 2016-07-23 14:01 | DRSVH ---
PROCEDURE: X-RAY CHEST ONE VIEW ([id number]) INDICATIONS: Catheter tip placement TECHNIQUE: One view of the chest was acquired. COMPARISON: [facility], CR, XR PICC LINE PLACE BY NURSE, 07/06/2016, 14:39. FINDINGS: Surgical changes and devices: Abandoned single lead cardiac pacer present. Right tube tip is project ed over the lower SVC and there is looping as well as Kienbck involving the mid to distal aspect of the catheter at the level of the proximal right subclavian vein Lungs and pleura: No pleural effusions or pneumothorax. Lungs are clear. Mediastinum: Mediastinal contours appear normal. Heart size is enlarged. Bones and chest wall: No suspicious bony lesions. Overlying soft tissues appear unremarkable. IMPRESSION: 1. Loop and kink present involving the mid to distal aspect of the right PICC. April Hernandez RN telephone with the results at 1100 hrs. 07/23/2016. Dictated by: Toy SANTANA Interpreted: Naomi Chavez MD on 07/23/2016 at 13:58 Transcribed by: SHERRY on 07/23/2016 at 14:00 Approved by: Naomi Chavez MD, PhD on 07/23/2016 at 17:07
--- NOTE | 2016-07-23 14:23 | DRSVH ---
PROCEDURE: X-RAY PICC LINE PLACEMENT BY NURSE ([id number]) INDICATIONS: PICC EVALUATION AND REPOSTION ATTEMPT COMPARISON: [facility], CR, XR CHEST 1VW, 07/23/2016, 10:34. FINDINGS: PICC was placed by the intravenous therapy team from the right side. Fluoroscopic spot fi lm demonstrates tip projected over the cavoatrial junction. IMPRESSION: Tip of PICC projected over the cavoatrial junction. Dictated by: Toy Mcpherson [facility] Interpreted: Naomi Chavez MD on 07/23/2016 at 14:22 Transcribed by: SHERRY on 07/23/2016 at 14:22 Approved by: Naomi Chavez MD, PhD on 07/23/2016 at 17:08
== END 2016-07-23 23:59 | disposition home or self-care (01) ==
LOC: MOCO 08:21
PROVIDERS: ATTEND Podiatrist
DX: T82.898A Other specified complication of vascular prosthetic devices, implants and grafts, initial encounter (principal); Z95.0 Presence of cardiac pacemaker
CPT/HCPCS: 36569; 71010; 77001; G0463